=== PATIENT | male | born 1950 | race Caucasian/White ===

== ENCOUNTER 2019-08-15 11:25 | Observation (INO) | payer MEDICARE ==
[2019-08-15] MEDS ORDERED: SODIUM CHLORIDE 0.9% 500 ML 500 ML IV STA (11:59)
[2019-08-15] MEDS ORDERED: SODIUM CHLORIDE 0.9% 1,000 ML IV STA (11:59)
[2019-08-15] MEDS ORDERED: HYDROmorphone 1 MG/ML 1 ML SYRINGE IVP STA (11:59)
[2019-08-15] MEDS ORDERED: IOPAMIDOL CONTRAST (ORAL USE) VIAL PO PRN (11:59)
[2019-08-15] MEDS ORDERED: ONDANSETRON 4 MG/2 ML VIAL IVP STA (11:59)
--- NOTE | 2019-08-15 12:04 | ED ---
Abdominal Pain HPI - General Chief Complaint: Abdominal Pain Stated Complaint: possible hernia/pain Time Seen by Provider: 08/15/19 11:38 Source: patient, family, RN notes reviewed Mode of arrival: wheelchair Limitations: no limitations - History of Present Illness Initial Comments: This is a 69-year-old male with a history of previous hernias who states he had the onset of a hernia that he believes popped out sometime yesterday. Complains of pain nausea vomiting abdominal pain. He did talk with his surgeon swelling was instructed to come in for evaluation. He states his last bowel movement was about 3 days ago. He denies any overt fevers chills or sweats. No dysuria no other modifying factors and currently is about 6/10 severity MD Complaint: abdominal pain - Related Data Home Medications Medication Instructions Recorded Confirmed Aspirin [Adult Low Dose Aspirin EC] 81 mg PO DAILY 02/10/16 08/15/19 Citalopram Hydrobromide [CeleXA] 10 mg PO DAILY 02/10/16 08/15/19 Lisinopril [Zestril] 20 mg PO DAILY 02/10/16 08/15/19 Spironolactone [Aldactone] 25 mg PO DAILY 02/10/16 08/15/19 Atorvastatin [Lipitor] 20 mg PO DAILY 08/15/19 08/15/19 Carvedilol [Coreg] 25 mg PO BID 08/15/19 08/15/19 Multivit-Min/FA/Lycopen/Lutein 1 tab PO DAILY 08/15/19 08/15/19 [Centrum Silver Men Tablet] Allergies Allergy/AdvReac Type Severity Reaction Status Date / Time No Known Allergies Allergy Verified 08/15/19 14:21 Review of Systems ROS Statement: Those systems with pertinent positive or pertinent negative responses have been documented in the HPI. ROS Other: All systems not noted in ROS Statement are negative. Past Medical History Past Medical History: Hypertension Additional Past Medical History / Comment(s): INCISIONAL HERNIA, TREMORS History of Any Multi-Drug Resistant Organisms: None Reported Past Surgical History: Heart Catheterization, Hernia Repair, Joint Replacement Additional Past Surgical History / Comment(s): RIGHT KNEE REPLACED. RIGHT INGUINAL AND VENTRAL HERNIA REPAIR. 4 TOTAL Past Anesthesia/Blood Transfusion Reactions: Previous Problems w/ Anesthesia Additional Past Anesthesia/Blood Transfusion Reaction / Comment(s): PAST HX OF TROUBLE WAKING UP, ALSO STATES TALKED BELLIGERENT WHEN WAKING UP Past Psychological History: No Psychological Hx Reported Smoking Status: Current every day smoker Past Alcohol Use History: None Reported Past Drug Use History: None Reported - Past Family History Father Family Medical History: CVA/TIA General Exam - General Exam Comments Initial Comments: This is a well-developed well-nourished awake alert oriented 3 male Limitations: no limitations General appearance: alert, in no apparent distress Head exam: Present: atraumatic, normocephalic, normal inspection Eye exam: Present: normal appearance, PERRL, EOMI. Absent: scleral icterus, conjunctival injection, periorbital swelling ENT exam: Present: mucous membranes dry, mucous membranes moist Neck exam: Present: normal inspection. Absent: tenderness, meningismus, lymphadenopathy Respiratory exam: Present: normal lung sounds bilaterally. Absent: respiratory distress, wheezes, rales, rhonchi, stridor Cardiovascular Exam: Present: regular rate, normal rhythm, normal heart sounds. Absent: systolic murmur, diastolic murmur, rubs, gallop, clicks GI/Abdominal exam: Present: soft, tenderness, normal bowel sounds, hernia (There is evidence of any herniation to the left mid abdomen tenderness palpation not easily reducible at this time.). Absent: distended, guarding, rebound, rigid, bruit, pulsatile mass Rectal exam: Present: deferred Extremities exam: Present: normal inspection, full ROM, normal capillary refill. Absent: tenderness, pedal edema, joint swelling, calf tenderness Back exam: Present: normal inspection Neurological exam: Present: alert, oriented X3, CN II-XII intact Psychiatric exam: Present: normal affect, normal mood Skin exam: Present: warm, dry, intact, normal color. Absent: rash Course Vital Signs 08/15/19 08/15/19 08/15/19 11:26 13:14 14:21 Temperature 98.3 F Pulse Rate 85 72 76 Respiratory 18 18 18 Rate Blood Pressure 116/79 107/72 107/66 O2 Sat by Pulse 98 97 95 Oximetry Medical Decision Making - Medical Decision Making I did discuss findings with patient family members were present and with Dr. Mckay patient will be admitted and taken the operating room for evaluation of the small bowel obstruction and hernia. - Lab Data Result diagrams: 08/15/19 12:31 08/15/19 12:31 Lab Results 08/15/19 08/15/19 08/15/19 Range/Units 12:31 12:31 12:31 WBC 14.3 H (3.8-10.6) k/uL RBC 5.23 (4.30-5.90) m/uL Hgb 15.9 (13.0-17.5) gm/dL Hct 47.4 (39.0-53.0) % MCV 90.6 (80.0-100.0) fL MCH 30.3 (25.0-35.0) pg MCHC 33.5 (31.0-37.0) g/dL RDW 12.8 (11.5-15.5) % Plt Count 277 (150-450) k/uL Neutrophils % 84 % Lymphocytes % 10 % Monocytes % 4 % Eosinophils % 1 % Basophils % 0 % Neutrophils # 12.1 H (1.3-7.7) k/uL Lymphocytes # 1.4 (1.0-4.8) k/uL Monocytes # 0.6 (0-1.0) k/uL Eosinophils # 0.1 (0-0.7) k/uL Basophils # 0.0 (0-0.2) k/uL PT 10.4 (9.0-12.0) sec INR 1.0 (<1.2) APTT 23.5 (22.0-30.0) sec Sodium 132 L (137-145) mmol/L Potassium 4.8 (3.5-5.1) mmol/L Chloride 98 (98-107) mmol/L Carbon Dioxide 23 (22-30) mmol/L Anion Gap 11 mmol/L BUN 28 H (9-20) mg/dL Creatinine 0.98 (0.66-1.25) mg/dL Est GFR (CKD-EPI)AfAm >90 (>60 ml/min/1.73 sqM) Est GFR (CKD-EPI)NonAf 78 (>60 ml/min/1.73 sqM) Glucose 120 H (74-99) mg/dL Calcium 9.8 (8.4-10.2) mg/dL Total Bilirubin 0.7 (0.2-1.3) mg/dL AST 25 (17-59) U/L ALT 19 (4-49) U/L Alkaline Phosphatase 50 (38-126) U/L Creatine Kinase 83 (55-170) U/L Total Protein 7.6 (6.3-8.2) g/dL Albumin 4.5 (3.5-5.0) g/dL Amylase 39 (30-110) U/L Lipase 39 (23-300) U/L Urine Color Urine Appearance (Clear) Urine pH (5.0-8.0) Ur Specific [place] (1.001-1.035) Urine Protein (Negative) Urine Glucose (UA) (Negative) Urine Ketones (Negative) Urine Blood (Negative) Urine Nitrite (Negative) Urine Bilirubin (Negative) Urine Urobilinogen (<2.0) mg/dL Ur Leukocyte Esterase (Negative) Urine RBC (0-5) /hpf Urine WBC (0-5) /hpf Ur Squamous Epith Cells (0-4) /hpf Urine Bacteria (None) /hpf Hyaline Casts (0-2) /lpf WBC Casts (0) /lpf Urine Mucus (None) /hpf 04/16/20 Range/Units 13:07 WBC (3.8-10.6) k/uL RBC (4.30-5.90) m/uL Hgb (13.0-17.5) gm/dL Hct (39.0-53.0) % MCV (80.0-100.0) fL MCH (25.0-35.0) pg MCHC (31.0-37.0) g/dL RDW (11.5-15.5) % Plt Count (150-450) k/uL Neutrophils % % Lymphocytes % % Monocytes % % Eosinophils % % Basophils % % Neutrophils # (1.3-7.7) k/uL Lymphocytes # (1.0-4.8) k/uL Monocytes # (0-1.0) k/uL Eosinophils # (0-0.7) k/uL Basophils # (0-0.2) k/uL PT (9.0-12.0) sec INR (<1.2) APTT (22.0-30.0) sec Sodium (137-145) mmol/L Potassium (3.5-5.1) mmol/L Chloride (98-107) mmol/L Carbon Dioxide (22-30) mmol/L Anion Gap mmol/L BUN (9-20) mg/dL Creatinine (0.66-1.25) mg/dL Est GFR (CKD-EPI)AfAm (>60 ml/min/1.73 sqM) Est GFR (CKD-EPI)NonAf (>60 ml/min/1.73 sqM) Glucose (74-99) mg/dL Calcium (8.4-10.2) mg/dL Total Bilirubin (0.2-1.3) mg/dL AST (17-59) U/L ALT (4-49) U/L Alkaline Phosphatase (38-126) U/L Creatine Kinase (55-170) U/L Total Protein (6.3-8.2) g/dL Albumin (3.5-5.0) g/dL Amylase (30-110) U/L Lipase (23-300) U/L Urine Color Yellow Urine Appearance Cloudy (Clear) Urine pH 5.5 (5.0-8.0) Ur Specific [place] 1.032 (1.001-1.035) Urine Protein 1+ H (Negative) Urine Glucose (UA) Negative (Negative) Urine Ketones 2+ H (Negative) Urine Blood Negative (Negative) Urine Nitrite Negative (Negative) Urine Bilirubin 1+ H (Negative) Urine Urobilinogen 3.0 (<2.0) mg/dL Ur Leukocyte Esterase Trace H (Negative) Urine RBC 3 (0-5) /hpf Urine WBC 3 (0-5) /hpf Ur Squamous Epith Cells 6 H (0-4) /hpf Urine Bacteria Rare H (None) /hpf Hyaline Casts 134 H (0-2) /lpf WBC Casts 2 (0) /lpf Urine Mucus Many H (None) /hpf - Radiology Data Radiology results: report reviewed (I did review the imaging and report evidence of a high-grade small bowel obstruction with small bowel loops dilated after 3.9 cm. Transition point involves a left-sided spegelian hernia), image reviewed Disposition Clinical Impression: Acute abdomen, Small bowel obstruction, Spigelian hernia with bowel obstruction Disposition: ADMITTED IP TO THIS [facility] Condition: Fair Referrals: Robert Hurtado MD [Primary Care Provider] - 1-2 days
[2019-08-15 12:50] LABS: Basophils % (A) 0 %; Eosinophils # (A) 0.1 k/uL (0-0.7); Eosinophils % (A) 1 %; HCT 47.4 % (39.0-53.0); HGB 15.9 gm/dL (13.0-17.5); Lymphocytes # (A) 1.4 k/uL (1.0-4.8); Lymphocytes % (A) 10 %; MCH 30.3 pg (25.0-35.0); MCHC 33.5 g/dL (31.0-37.0); MCV 90.6 fL (80.0-100.0); Monocytes # (A) 0.6 k/uL (0-1.0); Monocytes % (A) 4 %; Neutrophils # (A) 12.1 k/uL (1.3-7.7); Neutrophils % (A) 84 %; Platelet Count 277 k/uL (150-450); RBC 5.23 m/uL (4.30-5.90); RDW 12.8 % (11.5-15.5); WBC 14.3 k/uL (3.8-10.6)
[2019-08-15 12:55] LABS: ALT 19 U/L (4-49); AST 25 U/L (17-59); African American GFR (CKD) >90 (>60 ml/min/1.73 sqM); Albumin 4.5 g/dL (3.5-5.0); Alkaline Phosphatase 50 U/L (38-126); Amylase 39 U/L (30-110); Anion Gap 11 mmol/L; Blood Urea Nitrogen 28 mg/dL (9-20); Calcium 9.8 mg/dL (8.4-10.2); Carbon Dioxide 23 mmol/L (22-30); Chloride 98 mmol/L (98-107); Creatine Kinase 83 U/L (55-170); Glucose 120 mg/dL (74-99); Non-African American GFR(CKD) 78 (>60 ml/min/1.73 sqM); Potassium 4.8 mmol/L (3.5-5.1); Sodium 132 mmol/L (137-145); Total Bilirubin 0.7 mg/dL (0.2-1.3); Total Protein 7.6 g/dL (6.3-8.2)
[2019-08-15 13:01] LABS: Partial Thromboplastin Time 23.5 sec (22.0-30.0); Prothrombin Time 10.4 sec (9.0-12.0)
[2019-08-15 13:40] LABS: Appearance,Urine Cloudy (Clear); Bacteria,Urine Rare /hpf; Bilirubin,Urine 1+ (Negative); Blood,Urine Negative (Negative); Color,Urine Yellow; Glucose,Urine (UA) Negative (Negative); Hyaline Casts,Urine 134 /lpf (0-2); Ketones,Urine 2+ (Negative); Leukocyte Esterase,Urine Trace (Negative); Mucus,Urine Many /hpf; Nitrite,Urine Negative (Negative); PH, Urine 5.5 (5.0-8.0); Protein,Urine 1+ (Negative); RBC,Urine 3 /hpf (0-5); Specific Gravity,Urine 1.032 (1.001-1.035); Squamous Epithelial Cell,Urine 6 /hpf (0-4); WBC,Urine 3 /hpf (0-5); White Blood Cell Casts,Urine 2 /lpf (0)
--- NOTE | 2019-08-15 14:18 | CT ---
EXAMINATION TYPE: CT abdomen pelvis w con DATE OF EXAM: 08/15/2019 COMPARISON: NONE HISTORY: 69-year-old male abdominal distention, pain, possible hernia TECHNIQUE: Contiguous axial scanning of the abdomen and pelvis following administration of 100 ml Iso lulu 300 IV contrast. Delayed images through the kidneys and coronal/sagittal reconstructions perform ed. CT DLP: 837.6 mGycm Automated exposure control for dose reduction was used. FINDINGS: Heart normal size without pericardial effusion and coronary artery calcifications are present. Lung b ases clear without pleural effusion. No focal liver lesion or biliary ductal dilatation. Portal venous system is patent. Gallbladder, adrenal glands, kidneys, spleen, and pancreas show no gross abnormality. Fluid distention of the stomach multiple dilated small bowel loops with air-fluid levels. Small bowel loops are dilated up to 3.9 cm. There is a left-sided spigelian hernia containing a fluid filled and distended small bowel loop and mesenteric fat measuring up to 7.4 cm wide and 8.2 cm craniocaudal se rving as a transition point. Mild mesenteric edema in the lower abdomen without free fluid or free air at this time. Moderate vascular calcifications throughout the abdominal aorta and iliac arteries with fusiform infr arenal AAA measuring 3.1 cm. No mesenteric or retroperitoneal lymphadenopathy seen. Mild overall stool burden. Some scattered colonic diverticulosis, greatest in the sigmoid colon. No p ericolonic inflammatory change. Bladder not distended. Prostate gland measures 4.1 cm wide. No abnormal fluid collection in the pelvi s or pelvic lymphadenopathy. Bones: Mild degenerative changes at the hips There is a 1.8 cm lucency along the left acetabular roof, suspected subchondral geode related to dege nerative change. Hypertrophic facet arthropathy with grade 1 anterolisthesis at L4-L5. IMPRESSION: 1. HIGH-GRADE SMALL BOWEL OBSTRUCTION WITH SMALL BOWEL LOOPS DILATED UP TO 3.9 CM. THE TRANSITION POI NT INVOLVES A LEFT-SIDED SPIGELIAN HERNIA CONTAINING A FLUID-FILLED AND DILATED LOOP OF SMALL BOWEL A ND MESENTERIC FAT MEASURING UP TO 8.2 X 7.4 CM. 2. MILD REACTIVE MESENTERIC EDEMA IN THE LOWER ABDOMEN. NO FREE AIR OR FREE FLUID. 3. A 1.8 CM LUCENT LESION IN THE LEFT SUPERIOR ACETABULAR ROOF, SUSPECTED DEGENERATIVE SUBCHONDRAL GE ODE. CONSIDER 4-6 WEEK FOLLOW-UP MRI OF THE PELVIS TO FURTHER EVALUATE. 4. GENERALIZED COLONIC DIVERTICULOSIS, GREATEST IN THE SIGMOID COLON AND A 3.1 CM AAA.
[2019-08-15] MEDS ORDERED: PIPERACILLIN-TAZOBACTAM 3.375 GM in SODIUM CHLORIDE 0.9% 100 ML IVPB STA (14:47)
[2019-08-15] MEDS ORDERED: NALOXONE 0.4 MG/ML 1 ML VIAL IV PRN (14:50)
[2019-08-15] MEDS ORDERED: LACTATED RINGERS 1,000 ML IV ONE (17:16)
[2019-08-15] MEDS ORDERED: HEPARIN SODIUM,PORCINE 5,000 UNIT/ML 1 ML VIAL SQ ONE (17:43)
[2019-08-15] MEDS ORDERED: GLYCOPYRROLATE 0.2 MG/ML 2 ML VIAL ONE (17:45)
[2019-08-15] MEDS ORDERED: ROCURONIUM BROMIDE 10 MG/ML 5 ML VIAL IV ONE (17:45)
[2019-08-15] MEDS ORDERED: SUCCINYLCHOLINE CHLORIDE 100 MG/5 ML SYR IV ONE (17:45)
[2019-08-15] MEDS ORDERED: LIDOCAINE 1% INJ 10MG/ML (20 ML MDV) ONE (17:45)
[2019-08-15] MEDS ORDERED: PROPOFOL 10 MG/ML 20 ML VIAL IV ONE (17:45)
[2019-08-15] MEDS ORDERED: MIDAZOLAM 2 MG/2 ML VIAL ONE (17:45)
[2019-08-15] MEDS ORDERED: NEOSTIGMINE 1 MG/ML 10 ML VIAL ONE (17:45)
[2019-08-15] MEDS ORDERED: fentaNYL (PF) 50 MCG/ML 2 ML AMP ONE (17:45)
[2019-08-15] MEDS ORDERED: BUPIVACAIN-EPI 0.25%-1:200,000 30 ML VIAL SQ ONE (17:49)
--- NOTE | 2019-08-15 17:49 | P.GSHP ---
History of Present Illness H&P Date: 08/15/19 Chief Complaint: Incarcerated spigelian hernia Patient contacted my office earlier this morning by phone. Patient complaining of a bulge with abdominal pain and bloating constipation and vomiting. Patient with history of previous hernias. No change in size over the last 24 hours. Pain has been increasing. With sent to the ER. White blood cell count elevated. CAT scan shows an incarcerated spigelian hernia on the left-hand side causing bowel obstruction. Patient says his pain has improved since admission. Patient is afebrile without tachycardia. - Review of Systems Comment: The patient denies any acute changes in vision or hearing, no dysphagia or odynophagia, no chest pain or shortness of breath, no dysuria or hematuria, no headache, no runny nose, no rectal bleeding or melena, no unexplained weight loss Past Medical History Past Medical History: Hypertension Additional Past Medical History / Comment(s): INCISIONAL HERNIA, TREMORS History of Any Multi-Drug Resistant Organisms: None Reported Past Surgical History: Heart Catheterization, Hernia Repair, Joint Replacement Additional Past Surgical History / Comment(s): RIGHT KNEE REPLACED. RIGHT INGUINAL AND VENTRAL HERNIA REPAIR. 4 TOTAL Past Anesthesia/Blood Transfusion Reactions: Previous Problems w/ Anesthesia Additional Past Anesthesia/Blood Transfusion Reaction / Comment(s): PAST HX OF TROUBLE WAKING UP, ALSO STATES TALKED BELLIGERENT WHEN WAKING UP Past Psychological History: No Psychological Hx Reported Smoking Status: Current every day smoker Past Alcohol Use History: None Reported Additional Past Alcohol Use History / Comment(s): SMOKES LESS THAN 1/2 PPD, SINCE AGE 10 (1) Past Drug Use History: None Reported - Past Family History Father Family Medical History: CVA/TIA Medications and Allergies Home Medications Medication Instructions Recorded Confirmed Type Aspirin [Adult Low Dose Aspirin EC] 81 mg PO DAILY 02/10/16 08/15/19 History Citalopram Hydrobromide [CeleXA] 10 mg PO DAILY 02/10/16 08/15/19 History Lisinopril [Zestril] 20 mg PO DAILY 02/10/16 08/15/19 History Spironolactone [Aldactone] 25 mg PO DAILY 02/10/16 08/15/19 History Atorvastatin [Lipitor] 20 mg PO DAILY 08/15/19 08/15/19 History Carvedilol [Coreg] 25 mg PO BID 08/15/19 08/15/19 History Multivit-Min/FA/Lycopen/Lutein 1 tab PO DAILY 08/15/19 08/15/19 History [Centrum Silver Men Tablet] Allergies Allergy/AdvReac Type Severity Reaction Status Date / Time No Known Allergies Allergy Verified 08/15/19 14:21 Surgical - Exam Vital Signs Temp Pulse Resp BP Pulse Ox 98.3 F 85 18 116/79 98 08/15/19 11:26 08/15/19 11:26 08/15/19 11:26 08/15/19 11:26 08/15/19 11:26 Physical exam: General: Well-developed, well-nourished HEENT: Normocephalic, sclerae nonicteric Abdomen: Tender mass left midabdomen at anticipated spigelian location, no overlying skin changes, mild distention Extremities: No edema Neuro: Alert and oriented Results - Labs 08/15/19 12:31 08/15/19 12:31 Abnormal Lab Results - Last 24 Hours (Table) 08/15/19 08/15/19 08/15/19 Range/Units 12:31 12:31 13:07 WBC 14.3 H (3.8-10.6) k/uL Neutrophils # 12.1 H (1.3-7.7) k/uL Sodium 132 L (137-145) mmol/L BUN 28 H (9-20) mg/dL Glucose 120 H (74-99) mg/dL Urine Protein 1+ H (Negative) Urine Ketones 2+ H (Negative) Urine Bilirubin 1+ H (Negative) Ur Leukocyte Esterase Trace H (Negative) Ur Squamous Epith Cells 6 H (0-4) /hpf Urine Bacteria Rare H (None) /hpf Hyaline Casts 134 H (0-2) /lpf Urine Mucus Many H (None) /hpf Diabetes panel 08/15/19 Range/Units 12:31 Sodium 132 L (137-145) mmol/L Potassium 4.8 (3.5-5.1) mmol/L Chloride 98 (98-107) mmol/L Carbon Dioxide 23 (22-30) mmol/L BUN 28 H (9-20) mg/dL Creatinine 0.98 (0.66-1.25) mg/dL Glucose 120 H (74-99) mg/dL Calcium 9.8 (8.4-10.2) mg/dL AST 25 (17-59) U/L ALT 19 (4-49) U/L Alkaline Phosphatase 50 (38-126) U/L Total Protein 7.6 (6.3-8.2) g/dL Albumin 4.5 (3.5-5.0) g/dL Calcium panel 08/15/19 Range/Units 12:31 Calcium 9.8 (8.4-10.2) mg/dL Albumin 4.5 (3.5-5.0) g/dL Pituitary panel 08/15/19 Range/Units 12:31 Sodium 132 L (137-145) mmol/L Potassium 4.8 (3.5-5.1) mmol/L Chloride 98 (98-107) mmol/L Carbon Dioxide 23 (22-30) mmol/L BUN 28 H (9-20) mg/dL Creatinine 0.98 (0.66-1.25) mg/dL Glucose 120 H (74-99) mg/dL Calcium 9.8 (8.4-10.2) mg/dL Adrenal panel 08/15/19 Range/Units 12:31 Sodium 132 L (137-145) mmol/L Potassium 4.8 (3.5-5.1) mmol/L Chloride 98 (98-107) mmol/L Carbon Dioxide 23 (22-30) mmol/L BUN 28 H (9-20) mg/dL Creatinine 0.98 (0.66-1.25) mg/dL Glucose 120 H (74-99) mg/dL Calcium 9.8 (8.4-10.2) mg/dL Total Bilirubin 0.7 (0.2-1.3) mg/dL AST 25 (17-59) U/L ALT 19 (4-49) U/L Alkaline Phosphatase 50 (38-126) U/L Total Protein 7.6 (6.3-8.2) g/dL Albumin 4.5 (3.5-5.0) g/dL Assessment and Plan (1) Spigelian hernia with bowel obstruction Narrative/Plan: 69-year-old male with left-sided spigelian hernia that is incarcerated causing bowel obstruction. We'll proceed with urgent operative repair with possible mesh, possible bowel resection. Risks of bleeding, infection, recurrence, pain, scarring, mesh infection, possible need for bowel resection, leak, abscess, chronic pain reviewed. Patient understands and wishes to proceed. Current Visit: Yes Status: Acute Code(s): K43.6 - OTHER AND UNSP VENTRAL HERNIA WITH OBSTRUCTION, W/O GANGRENE SNOMED Code(s): 659386994
[2019-08-15] MEDS ORDERED: ceFAZolin 1,000 MG VIAL IVPB ONE (18:05)
[2019-08-15] MEDS ORDERED: HYDROmorphone 0.5 MG/0.5 ML SYRINGE IVP PRN (19:24)
[2019-08-15] MEDS ORDERED: HYDROcodone/APAP 5-325MG 1 EACH TAB PO PRN (19:24)
--- NOTE | 2019-08-15 19:31 | P.OP ---
Date of Procedure: 08/15/19 Procedure(s) Performed: PREOPERATIVE DIAGNOSIS: Incarcerated spigelian hernia POSTOPERATIVE DIAGNOSIS: Incarcerated incisional hernia PROCEDURE: Repair Incarcerated incisional hernia SURGEON: Woody EBL: 20 mL ANESTHESIA: Gen. COMPLICATIONS: None OPERATIVE PROCEDURE: Patient placed on the operating table in the supine position. After prepping and draping the patient's abdomen was reexamined. At this point I identified a previous scar overlying the palpable mass that was not well-visualized in preop. This was from the patient's previous robotic hernia repair I suspect a 12 mm trocar site. This appeared to be the site of hernia. A horizontal incision was made through the previous incision measuring about 6-8 cm in length. Dissection through the subcutaneous fat took place and an attenuated portion of external oblique was identified. Through that attenuated fascia I could visualize a hernia sac that had a slightly ischemic appearance. Careful dissection beneath the external oblique fascia then took place bluntly and using electrocautery. I was able to visualize another defect through the internal oblique at that time and the fascia of the internal oblique was further lengthened. I was then able to visualize a defect in the transversus abdominis. This was fairly tight measuring approximately 1-1.5 cm in diameter. This was opened slightly as well. We were then able to identify better blood supply to the hernia contents. The hernia sac was excised fully. The hernia contents c onsisted of a portion of pericolonic fat that appeared ischemic. This was excised using 3-0 silk ties to ligate on the patient's side. The single small bowel loop was reduced back into the peritoneal cavity after placing a small 3-0 GI silk to the mesentery. After approximately 5 minutes the bowel was reexamined and brought up into our field. The bowel had peristalsis and viability with good pink color noted. A single small 3-4 mm bruise was seen likely from manipulation. I placed 3 small 3-0 GI silk Lambert sutures over this portion to prevent future perforation in the event that this was ischemic in nature. The bowel was reduced [place] into the peritoneal cavity. The peritoneum and transversus abdominis was closed using a running locking #1 Vicryl suture. The internal oblique was closed using a running nonlocking #1 Vicryl suture. The external oblique fascia was reapproximated using a running nonlocking #1 Vicryl suture. I decided not to place permanent sutures or mesh in the event that bacterial translocation had occurred. Irrigation did take place prior to closure. The subcutaneous tissues were closed using inverted 3-0 Vicryl sutures. The skin was closed using a running 4-0 Monocryl stitch and skin glue was utilized as well. At the end of this procedure the sponge needle and inserting counts were all correct. DISPOSITION: Stable to recovery room
[2019-08-15] MEDS ORDERED: KETOROLAC 30 MG/ML 1 ML VIAL IVP ONE (19:43)
[2019-08-15] MEDS: SODIUM CHLORIDE 0.9% 1,000 ML IV SCH (21:05)
[2019-08-15] MEDS: HEPARIN SODIUM,PORCINE 5,000 UNIT/ML 1 ML VIAL SQ SCH (23:12)
[2019-08-16] MEDS: SODIUM CHLORIDE 0.9% 1,000 ML IV SCH ×2 (05:24→12:17)
[2019-08-16 06:10] VITALS: BP 115/66; PULSE 65; RESP 16; TEMP 98
--- NOTE | 2019-08-16 08:48 | P.DS ---
Providers Date of admission: 08/15/19 14:50 Expected date of discharge: 08/16/19 Attending physician: Vicente Mckay Primary care physician: Robert Hurtado - Discharge Diagnosis(es) (1) Spigelian hernia with bowel obstruction Patient admitted yesterday through the emergency department. Patient with incarcerated incisional hernia that underwent urgent repair. Patient doing well this morning. Tolerating clear liquids. Pain is improved. Would like to go home today. Incision dressing is clean and dry. Will plan discharge as long as patient continues to tolerate diet. Follow-up in office post discharge. Prescription for [place] will be provided. Current Visit: Yes Status: Acute Patient Condition at Discharge: Fair Plan - Discharge Summary New Discharge Prescriptions: No Action Spironolactone [Aldactone] 25 mg PO DAILY Lisinopril [Zestril] 20 mg PO DAILY Citalopram Hydrobromide [CeleXA] 10 mg PO DAILY Aspirin [Adult Low Dose Aspirin EC] 81 mg PO DAILY Multivit-Min/FA/Lycopen/Lutein [Centrum Silver Men Tablet] 1 tab PO DAILY Atorvastatin [Lipitor] 20 mg PO DAILY Carvedilol [Coreg] 25 mg PO BID Discharge Medication List Aspirin [Adult Low Dose Aspirin EC] 81 mg PO DAILY 02/10/16 [History] Citalopram Hydrobromide [CeleXA] 10 mg PO DAILY 02/10/16 [History] Lisinopril [Zestril] 20 mg PO DAILY 02/10/16 [History] Spironolactone [Aldactone] 25 mg PO DAILY 02/10/16 [History] Atorvastatin [Lipitor] 20 mg PO DAILY 08/15/19 [History] Carvedilol [Coreg] 25 mg PO BID 08/15/19 [History] Multivit-Min/FA/Lycopen/Lutein [Centrum Silver Men Tablet] 1 tab PO DAILY 08/15/19 [History] Follow up Appointment(s)/Referral(s): Robert Hurtado MD [Primary Care Provider] - 1-2 days
[2019-08-16] MEDS ORDERED: PANTOPRAZOLE 40 MG/10 ML VIAL IV SCH (09:00)
[2019-08-16] MEDS: HEPARIN SODIUM,PORCINE 5,000 UNIT/ML 1 ML VIAL SQ SCH (09:27)
--- NOTE | 2019-08-16 11:40 | P.CONS ---
History of Present Illness - Reason for Consult Recommendations regarding antihypertensive medications - History of Present Illness Patient came in with complaints of bloating constipation and vomiting patient has previous hernias patient is found to have a bulge in the left side of the abdomen found to have incarcerated spindly and hernia which was repaired last night. Patient is tolerating clear liquid diet well and patient diet is being advanced at this time and if he is able to tolerate that patient will be discharged later today. Patient denied any fever chills dysuria nausea vomiting patient doesn't have a [place] catheter. Computed tomography scan showed incarcerated spiffy and hernia on the left side causing bowel obstruction which was repeated as mentioned above. Review of Systems REVIEW OF SYSTEMS: CONSTITUTIONAL: No fever, no malaise, no fatigue. HEENT: No recent visual problems or hearing problems. Denied any sore throat. CARDIOVASCULAR: No chest pain, orthopnea, PND, no palpitations, no syncope. PULMONARY: No shortness of breath, no cough, no hemoptysis. GASTROINTESTINAL: As mentioned in HPI NEUROLOGICAL: No headaches, no weakness, no numbness. HEMATOLOGICAL: Denies any bleeding or petechiae. GENITOURINARY: Denies any burning micturition, frequency, or urgency. MUSCULOSKELETAL/RHEUMATOLOGICAL: Denies any joint pain, swelling, or any muscle pain. ENDOCRINE: Denies any polyuria or polydipsia. The rest of the 14-point review of systems is negative. Past Medical History Past Medical History: Hypertension Additional Past Medical History / Comment(s): INCISIONAL HERNIA, TREMORS History of Any Multi-Drug Resistant Organisms: None Reported Past Surgical History: Heart Catheterization, Hernia Repair, Joint Replacement Additional Past Surgical History / Comment(s): RIGHT KNEE REPLACED. RIGHT INGUINAL AND VENTRAL HERNIA REPAIR. 4 TOTAL Past Anesthesia/Blood Transfusion Reactions: Previous Problems w/ Anesthesia Additional Past Anesthesia/Blood Transfusion Reaction / Comm: PAST HX OF TROUBLE WAKING UP, ALSO STATES TALKED BELLIGERENT WHEN WAKING UP Past Psychological History: No Psychological Hx Reported Smoking Status: Current every day smoker Past Alcohol Use History: None Reported Additional Past Alcohol Use History / Comment(s): SMOKES LESS THAN 1/2 PPD, SINCE AGE 10 (1962) Past Drug Use History: None Reported - Past Family History Father Family Medical History: CVA/TIA Medications and Allergies Home Medications Medication Instructions Recorded Confirmed Type Aspirin [Adult Low Dose Aspirin EC] 81 mg PO DAILY 02/10/16 08/15/19 History Citalopram Hydrobromide [CeleXA] 10 mg PO DAILY 02/10/16 08/15/19 History Lisinopril [Zestril] 20 mg PO DAILY 02/10/16 08/15/19 History Spironolactone [Aldactone] 25 mg PO DAILY 02/10/16 08/15/19 History Atorvastatin [Lipitor] 20 mg PO DAILY 08/15/19 08/15/19 History Carvedilol [Coreg] 25 mg PO BID 08/15/19 08/15/19 History Multivit-Min/FA/Lycopen/Lutein 1 tab PO DAILY 08/15/19 08/15/19 History [Centrum Silver Men Tablet] Hydrocodone/Acetaminophen [[place] 1 tab PO Q6HR PRN 3 Days #10 tab 08/16/19 Rx 5-325] Allergies Allergy/AdvReac Type Severity Reaction Status Date / Time No Known Allergies Allergy Verified 08/15/19 14:21 Physical Exam Vitals: Vital Signs Temp Pulse Pulse Pulse Resp BP BP 08/16/19 06:09 98 F 65 16 115/66 08/15/19 22:30 58 L 119/78 08/15/19 22:00 54 L 105/54 08/15/19 21:15 56 L 124/69 08/15/19 21:00 58 L 125/67 08/15/19 20:45 97.6 F 56 L 18 135/83 08/15/19 20:01 61 18 138/67 08/15/19 19:46 58 L 18 117/56 08/15/19 19:32 51 L 18 139/73 08/15/19 19:16 57 L 18 152/72 08/15/19 19:05 97.6 F 67 16 155/81 08/15/19 17:08 98.4 F 69 18 151/78 08/15/19 16:01 98.4 F 67 16 141/81 08/15/19 15:28 98.6 F 71 18 105/80 08/15/19 14:21 76 18 107/66 08/15/19 13:14 72 18 107/72 Pulse Ox 08/16/19 06:09 97 08/15/19 22:30 94 L 08/15/19 22:00 97 08/15/19 21:15 96 08/15/19 21:00 99 08/15/19 20:45 97 08/15/19 20:01 99 08/15/19 19:46 100 08/15/19 19:32 100 08/15/19 19:16 100 08/15/19 19:05 98 08/15/19 17:08 97 08/15/19 16:01 95 08/15/19 15:28 95 08/15/19 14:21 95 08/15/19 13:14 97 Intake and Output 08/15/19 08/16/19 08/16/19 22:59 06:59 14:59 Intake Total 900 Output Total 10 Balance 890 Intake: IV 900 Output: Estimated Blood Loss 10 Other: # Voids 1 1 Weight 74.843 kg PHYSICAL EXAMINATION: GENERAL: The patient is alert and oriented x3, not in any acute distress. Well developed, well nourished. HEENT: Pupils are round and equally reacting to light. EOMI. No scleral icterus. No conjunctival pallor. Normocephalic, atraumatic. No pharyngeal erythema. No thyromegaly. CARDIOVASCULAR: S1 and S2 present. No murmurs, rubs, or gallops. PULMONARY: Chest is clear to auscultation, no wheezing or crackles. ABDOMEN: Soft, abdominal binder in place bowel sounds are present. MUSCULOSKELETAL: No joint swelling or deformity. EXTREMITIES: No cyanosis, clubbing, or pedal edema. NEUROLOGICAL: Gross neurological examination did not reveal any focal deficits. SKIN: No rashes. Results CBC & Chem 7: 08/15/19 12:31 08/15/19 12:31 Labs: Abnormal Lab Results - Last 24 Hours (Table) 08/15/19 08/15/19 08/15/19 Range/Units 12:31 12:31 13:07 WBC 14.3 H (3.8-10.6) k/uL Neutrophils # 12.1 H (1.3-7.7) k/uL Sodium 132 L (137-145) mmol/L BUN 28 H (9-20) mg/dL Glucose 120 H (74-99) mg/dL Urine Protein 1+ H (Negative) Urine Ketones 2+ H (Negative) Urine Bilirubin 1+ H (Negative) Ur Leukocyte Esterase Trace H (Negative) Ur Squamous Epith Cells 6 H (0-4) /hpf Urine Bacteria Rare H (None) /hpf Hyaline Casts 134 H (0-2) /lpf Urine Mucus Many H (None) /hpf Assessment and Plan Plan: -Hypertension: Patient blood pressures low-normal which is expected post surgery patient was asked to hold his lisinopril today and most probably tomorrow, patient can continue his Aldactone and Coreg -Nicotine abuse: Counseling was provided -Spigelian hernia status post repair: Pain medications and further postoperative management as per primary service patient is tolerating diet. Well
[2019-08-16] MEDS ORDERED: CARVEDILOL 12.5 MG TAB PO SCH (17:30)
[2019-08-17] MEDS ORDERED: CITALOPRAM HYDROBROMIDE 10 MG TAB PO SCH (09:00)
[2019-08-17] MEDS ORDERED: ASPIRIN 81 MG PO SCH (09:00)
[2019-08-17] MEDS ORDERED: ATORVASTATIN 20 MG TAB PO SCH (09:00)
== END 2019-08-16 16:20 | disposition home or self-care (01) ==
LOC: EC 11:25 → 5NMEDONC 14:50 → INTOOBSV 14:50 → 5NMEDONC 08-16 06:29 → UNDODISIN 08-16 16:20
PROVIDERS: ADMIT Surgery; ATTEND Surgery
PROC: 0WQF0ZZ Repair Abdominal Wall, Open Approach (ICD-10-PCS; principal; 2019-08-15 07:30)
DX: K43.0 Incisional hernia with obstruction, without gangrene (principal); I10 Essential (primary) hypertension; F17.210 Nicotine dependence, cigarettes, uncomplicated; Z79.82 Long term (current) use of aspirin; Z79.899 Other long term (current) drug therapy; Z82.3 Family history of stroke
CPT/HCPCS: 49561; 96361; 96374; 96375; 99285; 36415; 80053; 82150; 82550; 83690; 85025; 85610; 85730; 81001; 87040; 88302; 74177; G0378 ×2; J2543; J2250; J1644 ×2; J2710; J2405; J0690; J2001; J3010; J1885; J1170; J0330; J2704; C9113; Q9967

== ENCOUNTER 2019-08-17 09:21 | Emergency (ER) | payer MEDICARE ==
[2019-08-17 09:34] VITALS: RESP 18; TEMP 98.1
[2019-08-17] MEDS ORDERED: SODIUM CHLORIDE 0.9% 1,000 ML IV STA ×2 (09:53)
--- NOTE | 2019-08-17 10:01 | ED ---
Recheck HPI - General Chief Complaint: Recheck/Abnormal Lab/Rx Stated Complaint: Post op complications Time Seen by Provider: 08/17/19 09:41 Source: patient, RN notes reviewed, old records reviewed Mode of arrival: ambulatory Limitations: no limitations - History of Present Illness Initial Comments: This is a 69-year-old male who was discharged yesterday after having surgery for a bowel obstruction who states he had abdominal pain some nausea some vomiting decreased oral intake. He is having some lightheadedness he states the pain in his abdomen is improved he is not nauseated now he did discuss this with the surgeon who suggested he come in for evaluation. No fevers chills sweats no cough no phlegm production no other modifying factors at this time - Related Data Home Medications Medication Instructions Recorded Confirmed Aspirin [Adult Low Dose Aspirin EC] 81 mg PO DAILY 02/10/16 08/15/19 Citalopram Hydrobromide [CeleXA] 10 mg PO DAILY 02/10/16 08/15/19 Spironolactone [Aldactone] 25 mg PO DAILY 02/10/16 08/15/19 Atorvastatin [Lipitor] 20 mg PO DAILY 08/15/19 08/15/19 Carvedilol [Coreg] 25 mg PO BID 08/15/19 08/15/19 Multivit-Min/FA/Lycopen/Lutein 1 tab PO DAILY 08/15/19 08/15/19 [Centrum Silver Men Tablet] Previous Rx's Medication Instructions Recorded Hydrocodone/Acetaminophen [[place] 1 tab PO Q6HR PRN 3 Days #10 tab 08/16/19 5-325] Lisinopril [Zestril] 20 mg PO DAILY #0 08/16/19 Ondansetron [Zofran ODT] 4 mg PO Q8HR PRN #12 tab 08/17/19 Allergies Allergy/AdvReac Type Severity Reaction Status Date / Time No Known Allergies Allergy Verified 08/17/19 09:34 Review of Systems ROS Statement: Those systems with pertinent positive or pertinent negative responses have been documented in the HPI. ROS Other: All systems not noted in ROS Statement are negative. Past Medical History Past Medical History: Hypertension Additional Past Medical History / Comment(s): INCISIONAL HERNIA, TREMORS, intestional blockage History of Any Multi-Drug Resistant Organisms: None Reported Past Surgical History: Heart Catheterization, Hernia Repair, Joint Replacement Additional Past Surgical History / Comment(s): RIGHT KNEE REPLACED. RIGHT INGUINAL AND VENTRAL HERNIA REPAIR. 4 TOTAL, intestional blockage repair Past Anesthesia/Blood Transfusion Reactions: Previous Problems w/ Anesthesia Additional Past Anesthesia/Blood Transfusion Reaction / Comment(s): PAST HX OF TROUBLE WAKING UP, ALSO STATES TALKED BELLIGERENT WHEN WAKING UP Past Psychological History: No Psychological Hx Reported Smoking Status: Current every day smoker Past Alcohol Use History: None Reported Past Drug Use History: None Reported - Past Family History Father Family Medical History: CVA/TIA General Exam - General Exam Comments Initial Comments: This is a well-developed well-nourished awake alert oriented 3 male Limitations: no limitations General appearance: alert, in no apparent distress Head exam: Present: atraumatic, normocephalic, normal inspection Eye exam: Present: normal appearance, PERRL, EOMI. Absent: scleral icterus, conjunctival injection, periorbital swelling ENT exam: Present: mucous membranes dry Neck exam: Present: normal inspection. Absent: tenderness, meningismus, lymphadenopathy Respiratory exam: Present: normal lung sounds bilaterally. Absent: respiratory distress, wheezes, rales, rhonchi, stridor Cardiovascular Exam: Present: regular rate, normal rhythm, normal heart sounds. Absent: systolic murmur, diastolic murmur, rubs, gallop, clicks GI/Abdominal exam: Present: soft, tenderness (No discomfort over the surgical area no guarding no rebound), normal bowel sounds. Absent: distended, guarding, rebound, rigid Rectal exam: Present: deferred Extremities exam: Present: normal inspection, full ROM, normal capillary refill. Absent: tenderness, pedal edema, joint swelling, calf tenderness Back exam: Present: normal inspection Neurological exam: Present: alert, oriented X3, CN II-XII intact Psychiatric exam: Present: normal affect, normal mood Skin exam: Present: warm, dry, intact, normal color. Absent: rash Course Vital Signs 08/17/19 09:30 Temperature 98.1 F Pulse Rate 73 Respiratory 18 Rate Blood Pressure 141/73 O2 Sat by Pulse 99 Oximetry Medical Decision Making - Medical Decision Making I did discuss findings with the patient and his family were present. Also with Dr. Mckay. Patient is showing improved he'll be discharged home with for Zofran for nausea as needed also he does have enemas at home he will be sent home with a Therevac. Follow-up otherwise when necessary. He was offered admission and does not want stay in hospital at this time. - Lab Data Result diagrams: 08/17/19 10:03 08/17/19 10:03 Lab Results 08/17/19 08/17/19 Range/Units 10:03 10:03 WBC 9.4 (3.8-10.6) k/uL RBC 4.60 (4.30-5.90) m/uL Hgb 14.3 (13.0-17.5) gm/dL Hct 42.4 (39.0-53.0) % MCV 92.2 (80.0-100.0) fL MCH 31.0 (25.0-35.0) pg MCHC 33.7 (31.0-37.0) g/dL RDW 13.0 (11.5-15.5) % Plt Count 213 (150-450) k/uL Neutrophils % 90 % Lymphocytes % 6 % Monocytes % 3 % Eosinophils % 1 % Basophils % 0 % Neutrophils # 8.5 H (1.3-7.7) k/uL Lymphocytes # 0.6 L (1.0-4.8) k/uL Monocytes # 0.3 (0-1.0) k/uL Eosinophils # 0.1 (0-0.7) k/uL Basophils # 0.0 (0-0.2) k/uL Sodium 134 L (137-145) mmol/L Potassium 4.2 (3.5-5.1) mmol/L Chloride 101 (98-107) mmol/L Carbon Dioxide 25 (22-30) mmol/L Anion Gap 8 mmol/L BUN 16 (9-20) mg/dL Creatinine 0.67 (0.66-1.25) mg/dL Est GFR (CKD-EPI)AfAm >90 (>60 ml/min/1.73 sqM) Est GFR (CKD-EPI)NonAf >90 (>60 ml/min/1.73 sqM) Glucose 127 H (74-99) mg/dL Calcium 9.0 (8.4-10.2) mg/dL Total Bilirubin 0.5 (0.2-1.3) mg/dL AST 21 (17-59) U/L ALT 16 (4-49) U/L Alkaline Phosphatase 40 (38-126) U/L Total Protein 6.5 (6.3-8.2) g/dL Albumin 3.8 (3.5-5.0) g/dL Amylase 32 (30-110) U/L Lipase 31 (23-300) U/L - Radiology Data Radiology results: report reviewed (I did review the imaging and report no acute findings), image reviewed Disposition Clinical Impression: Postop check, Dehydration, Constipation Disposition: HOME SELF-CARE Condition: Good Instructions (If sedation given, give patient instructions): Dehydration (ED), Constipation (ED) Additional Instructions: Prescriptions sent to your preferred [facility] pharmacy at the hospital Prescriptions: Ondansetron [Zofran ODT] 4 mg PO Q8HR PRN #12 tab PRN Reason: Nausea Is patient prescribed a controlled substance at d/c from ED?: No Referrals: Robert Hurtado MD [Primary Care Provider] - 1-2 days
--- NOTE | 2019-08-17 10:24 | XR ---
EXAMINATION TYPE: XR abdomen 2V , 3 VIEWS DATE OF EXAM ORDERED: 08/17/2019 HISTORY: abdominal pain. COMPARISON: Previous study dated 04/23/2014. FINDINGS: The lung bases are clear. The heart is not enlarged. Within the abdomen, the abdominal gas pattern is within normal limits. There is no evidence of obstru ction or free air. There are vascular calcifications overlying the pelvis. Both femoral heads are nonspherical. IMPRESSION: 1. NO ACUTE INTRA-ABDOMINAL ABNORMALITY. 2. PLEASE CORRELATE CLINICALLY FOR FEMOROACETABULAR IMPINGEMENT SYNDROME
[2019-08-17 10:28] LABS: Basophils % (A) 0 %; Eosinophils # (A) 0.1 k/uL (0-0.7); Eosinophils % (A) 1 %; HCT 42.4 % (39.0-53.0); HGB 14.3 gm/dL (13.0-17.5); Lymphocytes # (A) 0.6 k/uL (1.0-4.8); Lymphocytes % (A) 6 %; MCHC 33.7 g/dL (31.0-37.0); MCV 92.2 fL (80.0-100.0); Mean Platelet Volume 7.2; Monocytes # (A) 0.3 k/uL (0-1.0); Monocytes % (A) 3 %; Neutrophils # (A) 8.5 k/uL (1.3-7.7); Neutrophils % (A) 90 %; Platelet Count 213 k/uL (150-450); WBC 9.4 k/uL (3.8-10.6)
[2019-08-17 10:37] LABS: ALT 16 U/L (4-49); AST 21 U/L (17-59); African American GFR (CKD) >90 (>60 ml/min/1.73 sqM); Albumin 3.8 g/dL (3.5-5.0); Alkaline Phosphatase 40 U/L (38-126); Amylase 32 U/L (30-110); Anion Gap 8 mmol/L; Blood Urea Nitrogen 16 mg/dL (9-20); Carbon Dioxide 25 mmol/L (22-30); Chloride 101 mmol/L (98-107); Glucose 127 mg/dL (74-99); Non-African American GFR(CKD) >90 (>60 ml/min/1.73 sqM); Potassium 4.2 mmol/L (3.5-5.1); Sodium 134 mmol/L (137-145); Total Bilirubin 0.5 mg/dL (0.2-1.3); Total Protein 6.5 g/dL (6.3-8.2)
[2019-08-17 11:29] LABS: Appearance,Urine Clear (Clear); Bilirubin,Urine Negative (Negative); Blood,Urine Negative (Negative); Color,Urine Yellow; Glucose,Urine (UA) Negative (Negative); Ketones,Urine 3+ (Negative); Leukocyte Esterase,Urine Negative (Negative); Mucus,Urine Moderate /hpf; Nitrite,Urine Negative (Negative); Protein,Urine 1+ (Negative); RBC,Urine 1 /hpf (0-5); Specific Gravity,Urine 1.025 (1.001-1.035); Squamous Epithelial Cell,Urine 2 /hpf (0-4); Urobilinogen,Urine <2.0 mg/dL (<2.0); WBC,Urine 1 /hpf (0-5)
[2019-08-17] MEDS ORDERED: DOCUSATE 283 MG/5 ML ENEMA RECTAL STA (11:40)
[2019-08-17 12:29] VITALS: BP 141/63; PULSE 66
== END 2019-08-17 12:27 | disposition home or self-care (01) ==
LOC: EC 09:21
DX: K59.00 Constipation, unspecified (principal); E86.0 Dehydration; Z48.815 Encounter for surgical aftercare following surgery on the digestive system; R11.0 Nausea; I10 Essential (primary) hypertension; F17.200 Nicotine dependence, unspecified, uncomplicated; Z79.82 Long term (current) use of aspirin; Z79.899 Other long term (current) drug therapy; Z87.19 Personal history of other diseases of the digestive system; Z98.890 Other specified postprocedural states; Z95.5 Presence of coronary angioplasty implant and graft; Z96.651 Presence of right artificial knee joint
CPT/HCPCS: 36415; 74019; 80053; 81001; 82150; 83690; 85025; 96360; 96361; 99284

== ENCOUNTER → 2019-10-04 | Outpatient (CLI) | payer MEDICARE | LOC: LABWHC1 13:29 | PROVIDERS: ATTEND Surgery | DX: Z11.59 Encounter for screening for other viral diseases (principal) ==

== ENCOUNTER 2019-10-07 11:10 | Day surgery (SDC) | payer MEDICARE ==
[2019-10-04 10:24] VITALS: BMI 25.0
[~2019-10-07 11:10] MED LIST: ACETAMINOPHEN TAB 500 MG TAB PO ONE; DEXAMETHASONE SOD PHOSPHATE 10 MG/ML 1 ML VIAL IV ONE; HEPARIN SODIUM,PORCINE 5,000 UNIT/ML 1 ML VIAL SQ ONE; HYDROmorphone 0.5 MG/0.5 ML SYRINGE IVP PRN; LIDOCAINE 1% (10MG/ML) FOR IV START INTRADERMA PRN; ONDANSETRON 4 MG/2 ML VIAL IVP ONE
[2019-10-07] MEDS: LACTATED RINGERS 1,000 ML IV SCH ×3 (12:21→15:55)
[2019-10-07] MEDS ORDERED: LIDOCAINE 1% INJ 10MG/ML (20 ML MDV) ONE (13:17)
[2019-10-07] MEDS ORDERED: PROPOFOL 10 MG/ML 20 ML VIAL IV ONE (13:17)
[2019-10-07] MEDS ORDERED: ROCURONIUM BROMIDE 10 MG/ML 5 ML VIAL IV ONE (13:17)
[2019-10-07] MEDS ORDERED: fentaNYL (PF) 50 MCG/ML 2 ML AMP ONE (13:17)
[2019-10-07] MEDS ORDERED: GLYCOPYRROLATE 0.2 MG/ML 2 ML VIAL ONE (13:17)
[2019-10-07] MEDS ORDERED: ePHEDrine SULFATE/0.9% NACL/PF 50 MG/5 ML SYRINGE IV ONE (13:17)
[2019-10-07] MEDS ORDERED: SUCCINYLCHOLINE CHLORIDE 100 MG/5 ML SYR IV ONE (13:17)
[2019-10-07] MEDS ORDERED: MIDAZOLAM 2 MG/2 ML VIAL ONE (13:17)
[2019-10-07] MEDS ORDERED: NEOSTIGMINE 1 MG/ML 10 ML VIAL ONE (13:17)
[2019-10-07] MEDS ORDERED: BUPIVACAIN-EPI 0.25%-1:200,000 30 ML VIAL SQ ONE (13:21)
[2019-10-07] MEDS ORDERED: NALOXONE 0.4 MG/ML 1 ML VIAL IV PRN (14:13)
[2019-10-07] MEDS ORDERED: HYDROcodone/APAP 5-325MG 1 EACH TAB PO PRN (14:13)
--- NOTE | 2019-10-07 14:15 | P.OP ---
Date of Procedure: 10/07/19 Procedure(s) Performed: PREOPERATIVE DIAGNOSIS: Left reducible inguinal hernia POSTOPERATIVE DIAGNOSIS: Left reducible indirect inguinal hernia PROCEDURE: F inguinal hernia repair with mesh SURGEON: Woody EBL: Minimal ANESTHESIA: General COMPLICATIONS: None OPERATIVE PROCEDURE: Patient was placed in the operating table in the supine position and placed under general anesthesia. An oblique incision was made in the [] groin. Dissection down through the subcutaneous tissues took place using electrocautery. The external oblique fascia was incised using a scalpel. This opening was lengthened using the Metzenbaum scissors. The spermatic cord was encircled with a Carole drain. The structures were identified and preserved. Careful dissection revealed an indirect hernia sac. This was carefully dissected back to the internal inguinal ring where it was ligated using 2 separate 2-0 silk stick tie sutures. A 3" x 6" Prolene mesh was cut to fit on the exposed fascia. This was sutured to the pubic tubercle the folding edge of the inguinal ligament and the conjoined tendon. A slit was created in the mesh and the mesh was wrapped around the spermatic cord and sutured back to itself. The external oblique was then reapproximated using a running 2-0 Vicryl suture. The subcutaneous tissues were reapproximated using a 3-0 Vicryl sutures. The skin was closed using 4-0 Monocryl sutures. Skin glue was then applied. DISPOSITION: Stable to recovery room
[2019-10-07 14:33] VITALS: TEMP 96.8
[2019-10-07] MEDS ORDERED: HYDROcodone/APAP 5-325MG 1 EACH TAB PO ONE ×2 (15:20)
[2019-10-07 16:18] VITALS: BP 139/75; PULSE 58; RESP 18
== END 2019-10-07 16:15 | disposition home or self-care (01) ==
LOC: OR 11:10
PROVIDERS: ATTEND Surgery
DX: K40.90 Unilateral inguinal hernia, without obstruction or gangrene, not specified as recurrent (principal); E78.5 Hyperlipidemia, unspecified; I10 Essential (primary) hypertension; F17.200 Nicotine dependence, unspecified, uncomplicated; K08.89 Other specified disorders of teeth and supporting structures; K08.409 Partial loss of teeth, unspecified cause, unspecified class; E66.9 Obesity, unspecified; Z68.34 Body mass index [BMI] 34.0-34.9, adult; Z98.890 Other specified postprocedural states; Z87.19 Personal history of other diseases of the digestive system; Z79.899 Other long term (current) drug therapy
CPT/HCPCS: 49505; 88302; C1781; J2250; J1644; J1100; J2710; J0690; J2405; J2001; J3010; J0330; J2704

== ENCOUNTER → 2020-01-16 | Outpatient (CLI) | payer MEDICARE | END | disposition home or self-care (01) | LOC: LABWHC1 14:53 | PROVIDERS: ATTEND Family Medicine | DX: Z20.828 Contact with and (suspected) exposure to other viral communicable diseases (principal) | CPT/HCPCS: U0003; C9803 ==

== ENCOUNTER → 2020-10-30 | Outpatient (CLI) | payer MEDICARE ==
--- NOTE | 2020-11-02 12:46 | MR ---
EXAMINATION TYPE: MR Prostate wo/w con DATE OF EXAM: 10/30/2020 COMPARISON: CT abdomen and pelvis August 15, 2019 INDICATION: Prostate cancer. PSA: 4.3 ng/ml on October 29, 2018 Recent Biopsy and Date: September 25, 2020 Pathology Report (If Applicable): Right lateral mid adenocarcinoma 3+3 = 6, 70% of tissue measures 3 mm length, right lateral apex adenocarcinoma [place] grade 3+3 = 6 90% of tissue measures 5 mm. Left base adenocarcinoma 3+3 = 6, 20% of tissue measures 1.5 mm length. Left mid adenocarcinoma [place] gr isabel 3+3 = 6 approximately 30% of tissue measures 1 mm length. Left apex adenocarcinoma [place] grade 3+3 = 6 20% of tissue measures 1.5 mm. TECHNIQUE: Examination was performed using a 3T MRI without an endorectal coil. Multiparametric imaging was perf ormed with T2 mutliplanar sequences, axial diffusion weighted imaging and dynamic contrast enhanced i maging, utilizing 7 mL intravenous Gadavist gadolinium contrast. FINDINGS: There is artifact related to patient motion along with some distortion noted on DWI/ADC imaging PROSTATE VOLUME: 4.2 cm SI x 2.8 cm AP x 4.2 cm LR Vol= 25.9 cc PSA DENSITY: 0.17 ng/ml/cc Predicted PSA 3.11 Overall normal size prostate with tiny areas of indistinct hypointensity on ADC mapping in the periph eral zone. No areas of [id number] hypointensity with mild hyperintensity on diffusion-weighted imaging. Heterogeneity in the transitional zone without areas of mild to moderate hypointensity on T2 -weighted imaging. Prostate capsular margin somewhat obscured. No adjacent suspicious adenopathy jassi rly seen. Bladder shows mild trabeculation. Prominent diverticula in the adjacent sigmoid colon noted. Small fa t-containing bilateral inguinal hernias redemonstrated. Visualized osseous structures are intact. Pat ient has little intra-abdominal fat. IMPRESSION: Highest Assessment Category: 2 MRI Stage: T1c N0 M0 based on review of pelvic images. False negative rates for MRI range from 5-20% depending on risk profile. Assessment Categories: 1 ? Very low (clinically significant cancer is highly unlikely to be present) 2 ? Low (clinically significant cancer is unlikely to be present) 3 ? Intermediate (the presence of clinically significant cancer is equivocal) 4 ? High (clinically significant cancer is likely to be present) 5 ? Very high (clinically significant cancer is highly likely to be present)
== END | disposition home or self-care (01) ==
LOC: RADMRIMAIN 17:49
PROVIDERS: ATTEND Radiology Radiation Oncology
DX: C61 Malignant neoplasm of prostate (principal); K40.20 Bilateral inguinal hernia, without obstruction or gangrene, not specified as recurrent; K57.30 Diverticulosis of large intestine without perforation or abscess without bleeding
CPT/HCPCS: 72197; A9585

== ENCOUNTER → 2021-01-05 | Outpatient (CLI) | payer MEDICARE ==
[2021-01-05 11:48] LABS: Basophils % (A) 0 %; Eosinophils # (A) 0.1 k/uL (0-0.7); Eosinophils % (A) 1 %; HCT 41.8 % (39.0-53.0); HGB 13.9 gm/dL (13.0-17.5); Lymphocytes # (A) 1.8 k/uL (1.0-4.8); Lymphocytes % (A) 22 %; MCH 32.2 pg (25.0-35.0); MCHC 33.3 g/dL (31.0-37.0); MCV 96.8 fL (80.0-100.0); Mean Platelet Volume 6.9; Monocytes # (A) 0.3 k/uL (0-1.0); Monocytes % (A) 4 %; Neutrophils # (A) 6.1 k/uL (1.3-7.7); Neutrophils % (A) 72 %; Platelet Count 235 k/uL (150-450); RBC 4.32 m/uL (4.30-5.90); RDW 12.6 % (11.5-15.5); WBC 8.6 k/uL (3.8-10.6)
[2021-01-05 12:08] LABS: African American GFR (CKD) >90 (>60 ml/min/1.73 sqM); Anion Gap 6 mmol/L; Blood Urea Nitrogen 21 mg/dL (9-20); Calcium 9.4 mg/dL (8.4-10.2); Carbon Dioxide 27 mmol/L (22-30); Chloride 104 mmol/L (98-107); Glucose 118 mg/dL (74-99); Non-African American GFR(CKD) 88 (>60 ml/min/1.73 sqM); Potassium 5.1 mmol/L (3.5-5.1); Sodium 137 mmol/L (137-145)
== END | disposition home or self-care (01) ==
LOC: LABPAT 10:17
PROVIDERS: ATTEND Urology
DX: Z01.812 Encounter for preprocedural laboratory examination (principal); C61 Malignant neoplasm of prostate
CPT/HCPCS: 36415; 80048; 85025

== ENCOUNTER 2021-01-14 06:16 | Day surgery (SDC) | payer MEDICARE ==
[2021-01-12 11:20] VITALS: BMI 24.5
--- NOTE | 2021-01-13 07:21 | P.GSHP ---
History of Present Illness H&P Date: 01/13/21 Chief Complaint: Prostate cancer q the patient is a 70-year-old white male with a history of prostate cancer. His PSA levels in June were 4.1 and 4.3. JOSE revealed a right-sided nodule. He underwent a prostate ultrasound with biopsies. The prostate volume was 25 mL. 6 of 12 biopsies showed [place] 6 adenocarcinoma. The Prolaris score was 3.9. In view of the volume of disease, he has elected to be treated with radiation therapy. He will undergo SpaceOAR implant to reduce the likelihood of rectal toxicity. - Genitourinary (Male) Genitourinary: Reports urinary frequency Past Medical History Past Medical History: Cancer, Hypertension, Prostate Disorder Additional Past Medical History / Comment(s): TREMORS, hx intestional blockage. prostate cancer History of Any Multi-Drug Resistant Organisms: None Reported Past Surgical History: Heart Catheterization, Hernia Repair, Joint Replacement Additional Past Surgical History / Comment(s): RIGHT KNEE REPLACED. RIGHT INGUINAL AND VENTRAL HERNIA REPAIR. 5 TOTAL, intestional blockage repair Past Anesthesia/Blood Transfusion Reactions: Previous Problems w/ Anesthesia Additional Past Anesthesia/Blood Transfusion Reaction / Comment(s): PAST HX OF TROUBLE WAKING UP, ALSO STATES TALKED BELLIGERENT WHEN WAKING UP Smoking Status: Former smoker - Past Family History Father Family Medical History: CVA/TIA Daughter(s) Family Medical History: Cancer Additional Family Medical History / Comment(s): brain cancer Brother(s) Family Medical History: Cancer Additional Family Medical History / Comment(s): prostate cancer Medications and Allergies Home Medications Medication Instructions Recorded Confirmed Type Aspirin [Adult Low Dose Aspirin EC] 81 mg PO DAILY 02/10/16 01/12/21 History Citalopram Hydrobromide [CeleXA] 10 mg PO DAILY 02/10/16 01/12/21 History Spironolactone [Aldactone] 25 mg PO DAILY 02/10/16 01/12/21 History Atorvastatin [Lipitor] 20 mg PO DAILY 08/15/19 01/12/21 History Carvedilol [Coreg] 25 mg PO BID 08/15/19 01/12/21 History Multivit-Min/FA/Lycopen/Lutein 1 tab PO DAILY 08/15/19 01/12/21 History [Centrum Silver Men Tablet] lisinopriL [Zestril] 10 mg PO DAILY 10/04/19 01/12/21 History Allergies Allergy/AdvReac Type Severity Reaction Status Date / Time No Known Allergies Allergy Verified 01/12/21 11:09 Surgical - Exam - General well developed, well nourished, no distress - Respiratory normal respiratory effort - Abdomen Abdomen: soft, non tender, no guarding, no rigid, no rebound - Genitourinary normal penis with no external lesions, testicles non-tender - Rectum Rectum: normal sphincter tone, no masses, other (Right-sided prostate nodule) - Psychiatric oriented to time, oriented to person, oriented to place, speech is normal, memory intact Assessment and Plan (1) Malignant neoplasm of prostate Status: Acute Code(s): C61 - MALIGNANT NEOPLASM OF PROSTATE SNOMED Code(s): 186344548 Plan: The SpaceOar implant has been reviewed in detail with the patient. He understands that the rationale for this is to create separation between the prostate and rectum, thus reducing the risk of radiation proctitis. The material begins to breakdown 12-13 weeks following implant, and is reabsorbed by the body. Risks include anesthesia, bleeding, infection, and perineal discomfort. He understands that if the rectal wall is perforated the procedure will need to be aborted.
[~2021-01-14 06:16] MED LIST changes: -ACETAMINOPHEN TAB 500 MG TAB PO ONE; -DEXAMETHASONE SOD PHOSPHATE 10 MG/ML 1 ML VIAL IV ONE; +DEXAMETHASONE SOD PHOSPHATE 4 MG/ML 1 ML VIAL IV ONE; -HEPARIN SODIUM,PORCINE 5,000 UNIT/ML 1 ML VIAL SQ ONE; -HYDROmorphone 0.5 MG/0.5 ML SYRINGE IVP PRN; -LIDOCAINE 1% (10MG/ML) FOR IV START INTRADERMA PRN
[2021-01-14] MEDS: LACTATED RINGERS 1,000 ML IV SCH ×2 (06:47→07:05)
[2021-01-14] MEDS ORDERED: HYDROmorphone 0.5 MG/0.5 ML SYRINGE IVP PRN (07:00)
[2021-01-14 07:21] VITALS: TEMP 97.1
[2021-01-14] MEDS ORDERED: fentaNYL (PF) 50 MCG/ML 2 ML AMP ONE (07:30)
[2021-01-14] MEDS ORDERED: KETAMINE 10 MG/ML 20 ML VIAL ONE (07:30)
[2021-01-14] MEDS ORDERED: ePHEDrine SULFATE/0.9% NACL/PF 50 MG/5 ML SYRINGE IV ONE (07:30)
[2021-01-14] MEDS ORDERED: GLYCOPYRROLATE 0.2 MG/ML 2 ML VIAL ONE (07:30)
[2021-01-14] MEDS ORDERED: PROPOFOL 10 MG/ML 20 ML VIAL IV ONE (07:30)
[2021-01-14] MEDS ORDERED: MIDAZOLAM 2 MG/2 ML VIAL ONE (07:30)
[2021-01-14] MEDS ORDERED: LIDOCAINE 2% INJ 20 MG/ML SQ ONE ×2 (07:56)
--- NOTE | 2021-01-14 08:31 | P.OP ---
Date of Procedure: 01/14/21 Preoperative Diagnosis: Adenocarcinoma of the prostate Postoperative Diagnosis: Same Procedure(s) Performed: SpaceOAR Implant Anesthesia: MAC Surgeon: Noe Nix Estimated Blood Loss (ml): 0 IV fluids (ml): 400 Pathology: none sent Condition: stable Disposition: PACU Indications for Procedure: The patient is a 70-year-old white male with a history of prostate cancer. His PSA levels in June 2020 were 4.1 and 4.3. JOSE revealed a right-sided nodule. He underwent a prostate ultrasound with biopsies. The prostate volume was 25 mL. 6 of 12 biopsies showed [place] 6 adenocarcinoma. The Prolaris score was 3.9. In view of the volume of disease, he has elected to be treated with radiation therapy. He will undergo SpaceOAR implant to reduce the likelihood of rectal toxicity. Operative Findings: 9 mm separation created between prostate and rectum. Description of Procedure: The patient was taken to the operating room and placed in the dorsolithotomy position, with his legs supported in Dale stirrups. The external genitalia was prepped and draped sterilely. The Bruel and Kjaer transrectal ultrasound probe was placed intrarectally. The prostate was imaged. The probe was then placed within the stabilizing stand. A spinal needle was advanced under ultrasonic guidance to the level of the urogenital diaphragm, and lidocaine was used to infiltrate the tissues as the needle was withdrawn. Next, the SpaceOAR needle was passed through the midline of the perineum, 1-2 cm anterior to the anal opening. The needle was slowly advanced under ultrasonic guidance until the needle tip was located within the fat plane between the prostate and rectum, at the level of the mid prostate gland. The needle was confirmed to be midline on the axial imaging. A small amount of normal saline was injected for hydrodissection. Next, the SpaceOAR components were mixed and loaded into the Y connector per protocol. The Y connector was then connected to the needle, and the components were injected slowly over a course of approximately 12 seconds. A total of [10] ml was injected. Significant distance was created between the prostate and rectum, as desired. It should be noted that at no point was there any concern of rectal perforation. The needle was withdrawn, as well as the transrectal ultrasound probe, and the procedure was terminated. The patient tolerated the procedure well and was taken to the recovery room in stable condition.
[2021-01-14 08:45] VITALS: BP 90/52; PULSE 61; RESP 18
== END 2021-01-14 08:55 | disposition home or self-care (01) ==
LOC: OR 06:16
PROVIDERS: ATTEND Urology
DX: C61 Malignant neoplasm of prostate (principal); I10 Essential (primary) hypertension; Z92.3 Personal history of irradiation; Z87.891 Personal history of nicotine dependence; R25.1 Tremor, unspecified; Z79.899 Other long term (current) drug therapy; Z79.82 Long term (current) use of aspirin
CPT/HCPCS: 84132; 55874; C1889; J2001; J2250; J1100; J0690; J2405; J3010; J2704

== ENCOUNTER → 2023-02-15 | Outpatient (CLI) | payer MEDICARE | LOC: CPPFTMAIN 10:10 | PROVIDERS: ATTEND Family Medicine | DX: J44.1 Chronic obstructive pulmonary disease with (acute) exacerbation (principal); F17.200 Nicotine dependence, unspecified, uncomplicated; Z79.899 Other long term (current) drug therapy | CPT/HCPCS: 94060; 94726; 94729 ==

== ENCOUNTER 2023-05-30 18:30 | Inpatient (IN) | payer MEDICARE ==
--- NOTE | 2023-05-30 19:44 | ED ---
General Adult HPI - General Source: patient Mode of arrival: ambulatory Limitations: no limitations <Lindsey Torre - Last Filed: 05/30/23 19:42> - General Source: RN notes reviewed, old records reviewed Mode of arrival: ambulatory Limitations: no limitations - History of Present Illness -: hour(s) Radiation: non-radiation Severity scale (1-10): 0 Consistency: intermittent Improves with: none <Shreyas Fay - Last Filed: 06/07/23 11:27> - General Chief complaint: GI Bleed Stated complaint: blood in stool Time Seen by Provider: 05/30/23 19:42 - History of Present Illness Initial comments: 73 year old male presenting with CC of bright red blood per rectum with bowel movement today. No abdominal pain. No fever or vomiting. No blood thinners. He had a colonoscopy within the last year which she states "was ok". (Lindsey Torre) This is a 73-year-old male with bright red blood per rectum which happened with a bowel movement today. Patient states normal bowel movement last year no travel history no sick contacts no abdominal pain, no significant medical history takes no new medications no blood thinners. (Shreyas Fay) - Related Data Home Medications Medication Instructions Recorded Confirmed Atorvastatin [Lipitor] 20 mg PO DAILY 08/15/19 05/30/23 Mv-Min/Folic/K1/Lycopen/Lutein 1 tab PO DAILY 08/15/19 05/30/23 [Centrum Silver Men Tablet] Albuterol Sulfate [Ventolin HFA] 2 puff INHALATION RT-Q4H PRN 05/30/23 05/30/23 Citalopram Hydrobromide [CeleXA] 20 mg PO DAILY 05/30/23 05/30/23 Previous Rx's Medication Instructions Recorded Amoxic-Pot Clav 500-125 mg 1 each PO BID 3 Days #6 tab 06/04/23 [Augmentin 500-125 mg] Ferrous Sulfate [Iron (65 MG 325 mg PO BID-W/MEALS 30 Days #60 06/04/23 Elemental)] tab Omeprazole [PriLOSEC] 40 mg PO AC-BRKFST #90 cap 06/04/23 Pantoprazole Sodium [Protonix] 40 mg PO AC-BID 60 Days #60 tab 02/04/24 lisinopriL [Zestril] 5 mg PO DAILY 30 Days #30 tab 06/04/23 Allergies Allergy/AdvReac Type Severity Reaction Status Date / Time No Known Allergies Allergy Verified 05/30/23 22:47 Review of Systems ROS Other: All systems not noted in ROS Statement are negative. <Lindsey Torre - Last Filed: 05/30/23 19:42> ROS Other: All systems not noted in ROS Statement are negative. <Shreyas Fay - Last Filed: 06/07/23 11:27> ROS Statement: Those systems with pertinent positive or pertinent negative responses have been documented in the HPI. Past Medical History Past Medical History: Hypertension Additional Past Medical History / Comment(s): INCISIONAL HERNIA, TREMORS, intestional blockage History of Any Multi-Drug Resistant Organisms: None Reported Past Surgical History: Joint Replacement Additional Past Surgical History / Comment(s): RIGHT KNEE REPLACED. RIGHT INGUINAL AND VENTRAL HERNIA REPAIR. 4 TOTAL, intestional blockage repair Past Anesthesia/Blood Transfusion Reactions: Previous Problems w/ Anesthesia Additional Past Anesthesia/Blood Transfusion Reaction / Comment(s): PAST HX OF TROUBLE WAKING UP, ALSO STATES TALKED BELLIGERENT WHEN WAKING UP Past Psychological History: No Psychological Hx Reported Past Alcohol Use History: None Reported Past Drug Use History: None Reported - Past Family History Father Family Medical History: CVA/TIA Daughter(s) Family Medical History: Cancer Additional Family Medical History / Comment(s): brain cancer Brother(s) Family Medical History: Cancer Additional Family Medical History / Comment(s): prostate cancer <Lindsey Torre - Last Filed: 05/30/23 19:42> General Exam Limitations: no limitations <Lindsey Torre - Last Filed: 05/30/23 19:42> General appearance: alert, in no apparent distress, anxious Head exam: Present: atraumatic, normocephalic, normal inspection Eye exam: Present: normal appearance, PERRL, EOMI. Absent: scleral icterus, conjunctival injection, periorbital swelling ENT exam: Present: normal exam, mucous membranes moist Neck exam: Present: normal inspection. Absent: tenderness, meningismus, lymphadenopathy Respiratory exam: Present: normal lung sounds bilaterally. Absent: respiratory distress, wheezes, rales, rhonchi, stridor Cardiovascular Exam: Present: regular rate, normal rhythm, normal heart sounds. Absent: systolic murmur, diastolic murmur, rubs, gallop, clicks GI/Abdominal exam: Present: soft, normal bowel sounds. Absent: distended, tenderness, guarding, rebound, rigid Extremities exam: Present: normal inspection, full ROM, normal capillary refill. Absent: tenderness, pedal edema, joint swelling, calf tenderness Back exam: Present: normal inspection Neurological exam: Present: alert, oriented X3, CN II-XII intact Psychiatric exam: Present: normal affect, normal mood Skin exam: Present: warm, dry, intact, normal color. Absent: rash <Shreyas Fay - Last Filed: 06/07/23 11:27> - General Exam Comments Initial Comments: Visual Physical Exam Vital signs reviewed General: Well-appearing, nontoxic, no acute distress. Head: Normocephalic, atraumatic Eyes: PERRLA, EOMI ENT: Airway patent Chest: Nonlabored breathing Skin: No visual rash, normal skin tone Neuro: Alert and oriented 3 Musculoskeletal: No gross abnormalities (Lindsey Torre) Course <Shreyas Fay - Last Filed: 06/07/23 11:27> Vital Signs 05/30/23 05/30/23 05/31/23 18:38 22:10 02:25 Temperature 98 F Pulse Rate 90 80 85 Respiratory 16 18 18 Rate Blood Pressure 111/76 116/82 103/78 O2 Sat by Pulse 98 96 96 Oximetry 05/31/23 05/31/23 05/31/23 05:31 08:41 12:03 Temperature 99.4 F 98.1 F Pulse Rate 85 72 75 Respiratory 18 20 20 Rate Blood Pressure 105/70 107/69 95/67 O2 Sat by Pulse 95 96 96 Oximetry 05/31/23 13:24 Temperature Pulse Rate 83 Respiratory 16 Rate Blood Pressure 98/63 O2 Sat by Pulse 99 Oximetry - Reevaluation(s) Reevaluation #1: 05/30/23 22:23 Medical records reviewed (Shreyas Fay) Reevaluation #2: 05/30/23 22:23 Patient has no significant active GI bleed (Shreyas Fay) Reevaluation #3: 05/30/23 22:23 Patient informed of results and questions answered (Shreyas Fay) Reevaluation #4: 05/30/23 22:23 Was pt. sent in by a medical professional or institution ([facility] Killian, [employer], urgent care, hospital, or halfway...) When possible be specific @ -no Did you speak to anyone other than the patient for history (EMS, parent, family, police, friend...)? What history was obtained from this source @ -no Did you review nursing and triage notes (agree or disagree)? Why? @ -agree Are old charts reviewed (outside hosp., previous admission, EMS record, old EKG, old radiological studies, urgent care reports/EKG's, halfway records)? Report findings @ -yes Differential Diagnosis (chest pain, altered mental status, abdominal pain women, abdominal pain men, vaginal bleeding, weakness, fever, dyspnea, syncope, headache, dizziness, GI bleed, back pain, seizure, CVA, palpatations, mental health, musculoskeletal)? @ -prior EKG interpreted by me (3pts min.). @ -no X-rays interpreted by me (1pt min.). @ -no CT interpreted by me (1pt min.). @ -no U/S interpreted by me (1pt. min.). @ -no What testing was considered but not performed or refused? (CT, X-rays, U/S, labs)? Why? @ -none What meds were considered but not given or refused? Why? @ -none Did you discuss the management of the patient with other professionals (professionals i.e. [facility] Killian, [employer], lab, RT, psych nurse, social media sr strategy manager, fertilizer mixer, teacher, chief security officer, welfare case worker)? Give summary @ -no Was smoking cessation discussed for >3mins.? @ -no Was critical care preformed (if so, how long)? @ -no Were there social determinants of health that impacted care today? How? (Homelessness, low income, unemployed, alcoholism, drug addiction, transport ation, low edu. Level, literacy, decrease access to med. care, custodial, rehab)? @ -none Was there de-escalation of care discussed even if they declined (Discuss DNR or withdrawal of care, Hospice)? DNR status @ -no What co-morbidities impacted this encounter? (DM, HTN, Smoking, COPD, CAD, Cancer, CVA, ARF, Chemo, Hep., AIDS, mental health diagnosis, sleep apnea, morbid obesity)? @ -none Was patient admitted / discharged? Hospital course, mention meds given and route, prescriptions, significant lab abnormalities, going to OR and other pertinent info. @ - 73 male for blood in stool. Patient will be admitted for bleeding, GI bleed with history of colonoscopy being negative, patient has no active bleeding here in the ER is not near syncopal Admitted Undiagnosed new problem with uncertain prognosis? @ -no Drug Therapy requiring intensive monitoring for toxicity (Heparin, Nitro, Insulin, Cardizem)? @ -no Were any procedures done? @ -no Diagnosis/symptom? @ -GI bleed Acute, or Chronic, or Acute on Chronic? @ -Acute Uncomplicated (without systemic symptoms) or Complicated (systemic symptoms)? @ -Complicated Side effects of treatment? @ -no Exacerbation, Progression, or Severe Exacerbation? @ -exacerbation Poses a threat to life or bodily function? How? (Chest pain, USA, NH, pneumonia, PE, COPD, DKA, ARF, appy, cholecystitis, CVA, Diverticulitis, Homicidal, Suicidal, threat to staff... and all critical care pts) @ -yes significant GI bleed (Shreyas Fay) - Consultations Consultation #1: Spoke with [facility] who agreed to admit this patient (Shreyas Fay) Medical Decision Making - Lab Data Result diagrams: 06/04/23 10:13 06/04/23 10:13 <Shreyas Fay - Last Filed: 06/07/23 11:27> - Medical Decision Making 73 male for blood in stool. Patient will be admitted for bleeding, GI bleed with history of colonoscopy being negative, patient has no active bleeding here in the ER is not near syncopal (Shreyas Fay) - Lab Data Lab Results 05/30/23 05/30/23 05/30/23 Range/Units 20:07 20:07 20:07 WBC 11.2 H (3.8-10.6) k/uL RBC 3.64 L (4.30-5.90) m/uL Hgb 11.5 L (13.0-17.5) gm/dL Hct 34.1 L (39.0-53.0) % MCV 93.8 (80.0-100.0) fL MCH 31.6 (25.0-35.0) pg MCHC 33.7 (31.0-37.0) g/dL RDW 12.6 (11.5-15.5) % Plt Count 276 (150-450) k/uL MPV 7.3 Neutrophils % 87 % Lymphocytes % 8 % Monocytes % 4 % Eosinophils % 0 % Basophils % 0 % Neutrophils # 9.7 H (1.3-7.7) k/uL Lymphocytes # 0.9 L (1.0-4.8) k/uL Monocytes # 0.4 (0-1.0) k/uL Eosinophils # 0.0 (0-0.7) k/uL Basophils # 0.0 (0-0.2) k/uL PT 11.3 (10.0-12.5) sec INR 1.0 (<1.2) APTT 21.7 L (22.0-30.0) sec Sodium 135 L (137-145) mmol/L Potassium 5.4 H (3.5-5.1) mmol/L Chloride 105 (98-107) mmol/L Carbon Dioxide 22 (22-30) mmol/L Anion Gap 8 mmol/L BUN 53 H (9-20) mg/dL Creatinine 0.80 (0.66-1.25) mg/dL Est GFR (CKD-EPI)AfAm >90 (>60 ml/min/1.73 sqM) Est GFR (CKD-EPI)NonAf 88 (>60 ml/min/1.73 sqM) Glucose 111 H (74-99) mg/dL Plasma Lactic Acid Jonathan (0.7-2.0) mmol/L Calcium 8.5 (8.4-10.2) mg/dL Phosphorus (2.5-4.5) mg/dL Magnesium (1.6-2.3) mg/dL Total Bilirubin 0.2 (0.2-1.3) mg/dL AST 16 L (17-59) U/L ALT 16 (4-49) U/L Alkaline Phosphatase 47 (38-126) U/L Total Protein 6.0 L (6.3-8.2) g/dL Albumin 3.3 L (3.5-5.0) g/dL Lipase 71 (23-300) U/L Blood Type Blood Type Confirm Blood Type Recheck Bld Type Recheck Status Antibody Screen Crossmatch Spec Expiration Date 05/30/23 05/30/23 05/31/23 Range/Units 20:07 20:07 09:29 WBC (3.8-10.6) k/uL RBC (4.30-5.90) m/uL Hgb (13.0-17.5) gm/dL Hct (39.0-53.0) % MCV (80.0-100.0) fL MCH (25.0-35.0) pg MCHC (31.0-37.0) g/dL RDW (11.5-15.5) % Plt Count (150-450) k/uL MPV Neutrophils % % Lymphocytes % % Monocytes % % Eosinophils % % Basophils % % Neutrophils # (1.3-7.7) k/uL Lymphocytes # (1.0-4.8) k/uL Monocytes # (0-1.0) k/uL Eosinophils # (0-0.7) k/uL Basophils # (0-0.2) k/uL PT (10.0-12.5) sec INR (<1.2) APTT (22.0-30.0) sec Sodium 134 L (137-145) mmol/L Potassium 4.2 (3.5-5.1) mmol/L Chloride 108 H (98-107) mmol/L Carbon Dioxide 23 (22-30) mmol/L Anion Gap 3 mmol/L BUN 51 H (9-20) mg/dL Creatinine 0.72 (0.66-1.25) mg/dL Est GFR (CKD-EPI)AfAm >90 (>60 ml/min/1.73 sqM) Est GFR (CKD-EPI)NonAf >90 (>60 ml/min/1.73 sqM) Glucose 91 (74-99) mg/dL Plasma Lactic Acid Jonathan 1.6 (0.7-2.0) mmol/L Calcium 7.3 L (8.4-10.2) mg/dL Phosphorus 3.0 (2.5-4.5) mg/dL Magnesium 1.5 L (1.6-2.3) mg/dL Total Bilirubin 0.2 (0.2-1.3) mg/dL AST 14 L (17-59) U/L ALT 12 (4-49) U/L Alkaline Phosphatase 35 L (38-126) U/L Total Protein 4.0 L (6.3-8.2) g/dL Albumin 2.0 L (3.5-5.0) g/dL Lipase (23-300) U/L Blood Type Blood Type Confirm A Positive Blood Type Recheck Bld Type Recheck Status Antibody Screen Crossmatch Spec Expiration Date 05/31/23 06/01/23 06/01/23 Range/Units 11:22 08:32 08:32 WBC 9.8 (3.8-10.6) k/uL RBC 2.10 L (4.30-5.90) m/uL Hgb 6.5 L* D (13.0-17.5) gm/dL Hct 19.3 L* (39.0-53.0) % MCV 92.0 (80.0-100.0) fL MCH 31.1 (25.0-35.0) pg MCHC 33.8 (31.0-37.0) g/dL RDW 13.0 (11.5-15.5) % Plt Count 187 (150-450) k/uL MPV 7.5 Neutrophils % 67 % Lymphocytes % 28 % Monocytes % 4 % Eosinophils % 1 % Basophils % 0 % Neutrophils # 6.5 (1.3-7.7) k/uL Lymphocytes # 2.7 (1.0-4.8) k/uL Monocytes # 0.4 (0-1.0) k/uL Eosinophils # 0.1 (0-0.7) k/uL Basophils # 0.0 (0-0.2) k/uL PT (10.0-12.5) sec INR (<1.2) APTT (22.0-30.0) sec Sodium 134 L (137-145) mmol/L Potassium 4.5 (3.5-5.1) mmol/L Chloride 109 H (98-107) mmol/L Carbon Dioxide 26 (22-30) mmol/L Anion Gap -1 mmol/L BUN 30 H (9-20) mg/dL Creatinine 0.68 (0.66-1.25) mg/dL Est GFR (CKD-EPI)AfAm >90 (>60 ml/min/1.73 sqM) Est GFR (CKD-EPI)NonAf >90 (>60 ml/min/1.73 sqM) Glucose 100 H (74-99) mg/dL Plasma Lactic Acid Jonathan (0.7-2.0) mmol/L Calcium 7.7 L (8.4-10.2) mg/dL Phosphorus (2.5-4.5) mg/dL Magnesium 2.0 (1.6-2.3) mg/dL Total Bilirubin (0.2-1.3) mg/dL AST (17-59) U/L ALT (4-49) U/L Alkaline Phosphatase (38-126) U/L Total Protein (6.3-8.2) g/dL Albumin (3.5-5.0) g/dL Lipase (23-300) U/L Blood Type A Positive Blood Type Confirm Blood Type Recheck No Previous Record Bld Type Recheck Status CABO Indicated Antibody Screen NEGATIVE Crossmatch See Detail Spec Expiration Date 06/03/20232321 Disposition <Lindsey Torre - Last Filed: 05/30/23 19:42> Is patient prescribed a controlled substance at d/c from ED?: No Time of Disposition: 22:25 <Shreyas Fay - Last Filed: 06/07/23 11:27> Clinical Impression: GI bleed Disposition: ADMITTED IP TO THIS [facility] Condition: Fair
[2023-05-30 20:11] LABS: Basophils % (A) 0 %; Eosinophils % (A) 0 %; HCT 34.1 % (39.0-53.0); HGB 11.5 gm/dL (13.0-17.5); Lymphocytes # (A) 0.9 k/uL (1.0-4.8); Lymphocytes % (A) 8 %; MCH 31.6 pg (25.0-35.0); MCHC 33.7 g/dL (31.0-37.0); MCV 93.8 fL (80.0-100.0); Mean Platelet Volume 7.3; Monocytes # (A) 0.4 k/uL (0-1.0); Monocytes % (A) 4 %; Neutrophils # (A) 9.7 k/uL (1.3-7.7); Neutrophils % (A) 87 %; Platelet Count 276 k/uL (150-450); RBC 3.64 m/uL (4.30-5.90); RDW 12.6 % (11.5-15.5); WBC 11.2 k/uL (3.8-10.6)
[2023-05-30 20:26] LABS: ALT 16 U/L (4-49); AST 16 U/L (17-59); African American GFR (CKD) >90 (>60 ml/min/1.73 sqM); Albumin 3.3 g/dL (3.5-5.0); Alkaline Phosphatase 47 U/L (38-126); Anion Gap 8 mmol/L; Blood Urea Nitrogen 53 mg/dL (9-20); Calcium 8.5 mg/dL (8.4-10.2); Carbon Dioxide 22 mmol/L (22-30); Chloride 105 mmol/L (98-107); Glucose 111 mg/dL (74-99); Lipase 71 U/L (23-300); Non-African American GFR(CKD) 88 (>60 ml/min/1.73 sqM); Potassium 5.4 mmol/L (3.5-5.1); Sodium 135 mmol/L (137-145); Total Bilirubin 0.2 mg/dL (0.2-1.3)
[2023-05-30 20:30] LABS: Prothrombin Time 11.3 sec (10.0-12.5)
[2023-05-30 20:37] LABS: Partial Thromboplastin Time 21.7 sec (22.0-30.0)
[2023-05-30] MEDS ORDERED: NALOXONE 0.4 MG/ML 1 ML VIAL IV PRN (22:21)
[2023-05-30] MEDS ORDERED: ONDANSETRON 4 MG/2 ML VIAL IVP PRN (22:21)
[2023-05-30] MEDS ORDERED: MORPHINE SULFATE 4 MG/ML SYRINGE IV PRN (22:21)
[2023-05-30] MEDS: SODIUM CHLORIDE 0.9% 1,000 ML IV SCH (22:48)
[2023-05-30] MEDS: MELATONIN 3 MG TABLET PO SCH (22:48)
--- NOTE | 2023-05-31 08:07 | P.HPIM ---
History of Present Illness This is a pleasant 73 years old male with past medical history of hypertension. He follow-up with instructional services specialist Dr. Juarez for his high blood pressure he was placed on aspirin 81 mg daily. His PCP is Dr. Hurtado. Patient presents because of episodes of blood in his stool that fills about one cup that happened yesterday afternoon and this morning. Patient denies abdominal pain or vomiting or bleeding from anywhere else. He states that he has chronic diarrhea for months once a day. He denies urinary symptoms. No chest pain. No headache dizziness weakness or numbness. Patient currently not a smoker but he has history of COPD. 3 days ago he went to his clinic offices and he was treated with prednisone, antibiotic and he took Motrin for generalized body ache. He is feeling better, breathing and coughing are improving. He states he still left 2 days of treatment at home. He denies alcohol or illicit drugs. Hemodynamically stable, blood pressure on the low normal side systolic around 100 110. He is currently on normal saline 75 mL/h going to give him another blood loss of 500 mL of normal saline. Aspirin was placed on hold as well as Motrin and steroids and is currently on IV Protonix once daily. Hemoglobin is 11.5, WBC is 11.2. Potassium 5.4 and creatinine within the reference range. INR, BMP and liver enzymes were unremarkable Patient states that recently he had colonoscopy with Dr. Mckay which was unremarkable as per patient Review of Systems Review of systems CONSTITUTIONAL: No fever, no malaise, no fatigue. HEENT: No recent visual problems or hearing problems. Denied any sore throat. CARDIOVASCULAR: No orthopnea, PND, no palpitations, no syncope. PULMONARY: No shortness of breath, no cough, no hemoptysis. GASTROINTESTINAL: , no nausea, no vomiting, Normoactive bowel sounds. NEUROLOGICAL: No headaches, no weakness, no numbness. HEMATOLOGICAL: Denies any bleeding or petechiae. GENITOURINARY: Denies any burning micturition, frequency, or urgency. MUSCULOSKELETAL/RHEUMATOLOGICAL: Denies any joint pain, swelling, or any muscle pain. ENDOCRINE: Denies any polyuria or polydipsia. Past Medical History Past Medical History: Hypertension Additional Past Medical History / Comment(s): INCISIONAL HERNIA, TREMORS, intestional blockage History of Any Multi-Drug Resistant Organisms: None Reported Past Surgical History: Joint Replacement Additional Past Surgical History / Comment(s): RIGHT KNEE REPLACED. RIGHT INGUINAL AND VENTRAL HERNIA REPAIR. 4 TOTAL, intestional blockage repair Past Anesthesia/Blood Transfusion Reactions: Previous Problems w/ Anesthesia Additional Past Anesthesia/Blood Transfusion Reaction / Comment(s): PAST HX OF TROUBLE WAKING UP, ALSO STATES TALKED BELLIGERENT WHEN WAKING UP Past Psychological History: No Psychological Hx Reported Past Alcohol Use History: None Reported Past Drug Use History: None Reported - Past Family History Father Family Medical History: CVA/TIA Daughter(s) Family Medical History: Cancer Additional Family Medical History / Comment(s): brain cancer Brother(s) Family Medical History: Cancer Additional Family Medical History / Comment(s): prostate cancer Medications and Allergies Home Medications Medication Instructions Recorded Confirmed Type Aspirin [Adult Low Dose Aspirin EC] 81 mg PO DAILY 02/10/16 05/30/23 History Spironolactone [Aldactone] 25 mg PO DAILY 02/10/16 05/30/23 History Atorvastatin [Lipitor] 20 mg PO DAILY 08/15/19 05/30/23 History Mv-Min/Folic/K1/Lycopen/Lutein 1 tab PO DAILY 08/15/19 05/30/23 History [Centrum Silver Men Tablet] carvediloL [Coreg] 25 mg PO BID 08/15/19 05/30/23 History lisinopriL [Zestril] 20 mg PO DAILY 10/04/19 05/30/23 History Albuterol Sulfate [Ventolin HFA] 2 puff INHALATION RT-Q4H PRN 05/30/23 05/30/23 History Citalopram Hydrobromide [CeleXA] 20 mg PO DAILY 05/30/23 05/30/23 History Doxycycline Hyclate 100 mg PO Q12H 05/30/23 05/30/23 History predniSONE 50 mg PO DAILY 05/30/23 05/30/23 History Allergies Allergy/AdvReac Type Severity Reaction Status Date / Time No Known Allergies Allergy Verified 05/30/23 22:47 Physical Exam Vitals: Vital Signs Temp Pulse Resp BP Pulse Ox 05/31/23 05:31 85 18 105/70 95 05/31/23 02:25 85 18 103/78 96 05/30/23 22:10 80 18 116/82 96 05/30/23 18:38 98 F 90 16 111/76 98 Intake and Output 05/30/23 05/31/23 05/31/23 22:59 06:59 14:59 Other: Weight 63.503 kg GENERAL: The patient is alert and oriented x3, not in any acute distress. Well developed, well nourished. HEENT: Pupils are round and equally reacting to light. EOMI. No scleral icterus. No conjunctival pallor. Normocephalic, atraumatic. No pharyngeal erythema. No thyromegaly. CARDIOVASCULAR: S1 and S2 present. No murmurs, rubs, or gallops. PULMONARY: Chest is clear to auscultation, no wheezing , no crackles. -ABDOMEN: Soft, very mild RLQ tenderness with no rebound tenderness or guarding, nondistended, normoactive bowel sounds. No palpable organomegaly. MUSCULOSKELETAL: No joint swelling or deformity. EXTREMITIES: No cyanosis, clubbing, or pedal edema. NEUROLOGICAL: Gross neurological examination did not reveal any focal deficits. SKIN: No rashes. no petechiae. Results CBC & Chem 7: 05/30/23 20:07 05/30/23 20:07 Labs: Abnormal Lab Results - Last 24 Hours (Table) 05/30/23 05/30/23 05/30/23 Range/Units 20:07 20:07 20:07 WBC 11.2 H (3.8-10.6) k/uL RBC 3.64 L (4.30-5.90) m/uL Hgb 11.5 L (13.0-17.5) gm/dL Hct 34.1 L (39.0-53.0) % Neutrophils # 9.7 H (1.3-7.7) k/uL Lymphocytes # 0.9 L (1.0-4.8) k/uL APTT 21.7 L (22.0-30.0) sec Sodium 135 L (137-145) mmol/L Potassium 5.4 H (3.5-5.1) mmol/L BUN 53 H (9-20) mg/dL Glucose 111 H (74-99) mg/dL AST 16 L (17-59) U/L Total Protein 6.0 L (6.3-8.2) g/dL Albumin 3.3 L (3.5-5.0) g/dL Assessment and Plan Assessment: Acute GI bleed, tenderness blood per rectum Acute blood loss anemia Hypertension Plan: Continue with IV fluid Hold aspirin and Motrin Continue with IV Protonix GI and surgery consult consider CT of the abdomen Labs and medication were reviewed.. Continue same treatment. Continue with symptomatic treatment. Resume home medication. Monitor labs and vitals. DVT and GI prophylaxis. Further recommendations as per clinical course of the patient DVT prophylaxis: no Subcutaneous heparin GI Prophylaxis: Ppi
[2023-05-31] MEDS ORDERED: IOPAMIDOL CONTRAST (ORAL USE) VIAL PO PRN (08:11)
[2023-05-31] MEDS ORDERED: RX INFO: IV CONTRAST WAS GIVEN 1 EACH MISC MISCELLANE PRN (08:12)
[2023-05-31] MEDS: SODIUM CHLORIDE 0.9% 500 ML 500 ML IV ONE (08:27)
[2023-05-31] MEDS ORDERED: ACETAMINOPHEN TAB 325 MG TAB PO PRN (08:41)
[2023-05-31] MEDS: PANTOPRAZOLE 40 MG/10 ML VIAL IV SCH ×2 (08:43→20:30)
[2023-05-31] MEDS: SODIUM CHLORIDE 0.9% 1,000 ML IV ONE (08:49)
--- NOTE | 2023-05-31 09:42 | CT ---
EXAMINATION TYPE: CT angio thor/abd pel aorta CT DLP: 1285 mGycm, Automated exposure control for dose reduction was used. DATE OF EXAM: 05/31/2023 9:24 AM COMPARISON: CT abdomen and pelvis 08/15/2019. CLINICAL INDICATION:Male, 73 years old with history of sob; PHH, gi bleed TECHNIQUE: GI bleed protocol: Multiple axial CT images of the chest and abdomen were obtained prior t o the administration intravenous contrast. Then multiple axial CT images of the chest, abdomen and pe lvis were obtained after the uneventful administration of 100 mL of Isovue-370 intravenously. FINDINGS: Vasculature: Ascending thoracic aortic aneurysm measuring up to 4.5 cm. Aortic root measures up to 3. 5 cm. Descending thoracic aorta measures up to 2.7 cm. On vaginal three-vessel aortic arch. Infrarena l abdominal aortic fusiform aneurysm measuring up to 3.6 cm. Mural thrombus identified within the abd ominal aorta. The bilateral renal arteries are widely patent. There are 2 left renal arteries. The ce liac access and SMA are widely patent. The GRICELDA is patent. No evidence for intramural hematoma or diss ection of the aorta. Lungs/pleura: No pleural effusion or pneumothorax. Patchy scattered reticular groundglass opacities w ithin the bilateral lung bases. Moderate centrilobular emphysematous changes. 5 mm nodule along the r ight minor fissure (series 506, image 83). Biapical pleural-parenchymal scarring. Heart: Within normal limits. Moderate coronary arterial calcifications. No pericardial effusion. Mediastinum: No gross evidence of adenopathy. Lower Neck: No significant findings. Soft tissues: Bilateral gynecomastia. Abdomen: Liver: Unremarkable. Gallbladder and Bile ducts: Unremarkable. Pancreas: Unremarkable. Spleen: Unremarkable. Adrenal glands: Unremarkable. Kidneys and Ureters: Unremarkable. No hydronephrosis. Stomach and Bowel: Circumferential wall thickening of the underdistended stomach. Hyperdense material on the arterial phase identified within the proximal duodenum (series 501, image 184). Not present o n the noncontrast phase. This changes the morphology on the delayed phase. No other hyperdense materi al identified within the bowel. No evidence of bowel obstruction. Colonic diverticulosis without franklyn dence for acute diverticulitis. Peritoneum: No evidence of pneumoperitoneum, free fluid, or adenopathy. Bladder: Unremarkable. Reproductive: Unremarkable. Abdominal wall/soft tissues: Unremarkable. Musculoskeletal: The osseous structures appear intact. Multilevel degenerative changes of the spine. Grade I anterolisthesis of L4 on L5. No pars defects. Prominent facet arthropathy at L4-L5. IMPRESSION: 1. Findings most consistent with acute GI bleed within the proximal duodenum. 2. Ascending thoracic aortic aneurysm measuring up to 4.5 cm. Additional infrarenal abdominal aortic aneurysm measuring up to 3.6 cm. 3. Moderate COPD changes. 4. Few scattered reticular and groundglass opacities within the bilateral lower lobe suspicious for a n infectious/inflammatory process. Additional 5 mm nodule along the right minor fissure which likely represents an intrafissural lymph node. According to Fleischner criteria, in a low-risk patient no fo llow-up is recommended. In a high-risk patient as an optional CT chest in 12 months. 5. Circumferential wall thickening of the underdistended stomach which may be represent an infectious /inflammatory process versus underdistention. Consider direct visualization. 6. Colonic diverticulosis.
[2023-05-31 10:17] LABS: ALT 12 U/L (4-49); AST 14 U/L (17-59); African American GFR (CKD) >90 (>60 ml/min/1.73 sqM); Alkaline Phosphatase 35 U/L (38-126); Anion Gap 3 mmol/L; Blood Urea Nitrogen 51 mg/dL (9-20); Calcium 7.3 mg/dL (8.4-10.2); Carbon Dioxide 23 mmol/L (22-30); Chloride 108 mmol/L (98-107); Glucose 91 mg/dL (74-99); Magnesium 1.5 mg/dL (1.6-2.3); Non-African American GFR(CKD) >90 (>60 ml/min/1.73 sqM); Potassium 4.2 mmol/L (3.5-5.1); Sodium 134 mmol/L (137-145); Total Bilirubin 0.2 mg/dL (0.2-1.3)
--- NOTE | 2023-05-31 11:16 | P.CONS ---
History of Present Illness - Reason for Consult Consult date: 05/31/23 GI bleed Requesting physician: Shreyas Fay - Chief Complaint GI bleed bloody bowel movements - History of Present Illness This is a pleasant 73-year-old white male who presented to the emergency department yesterday evening with concerns of rectal bleeding. Past medical history includes hypertension, hernia repair and small bowel obstruction. He states he started having bright red or dark red bleeding yesterday afternoon nonpainful bloody bowel movements. States he had about 4 they have darkened since then and this morning he had black stool. Again denies any abdominal pain, nausea or vomiting. He denies any anticoagulation, he does take daily 81 mg aspirin, no NSAID use. No history of GI bleed, no peptic ulcer or acid reflux. He had a recent screening colonoscopy with About 05/06/2023 which she states was normal. He did have a CTA thoracic abdomen pelvis aorta completed which reported findings most consistent with acute GI bleed within the proximal duodenum. Circumferential wall thickening of the under distended stomach hyperdense material on the arterial phase identified within the proximal duodenum. Not present on the noncontrast phase. Pending labs WBC 11.2 hemoglobin 11.5 hematocrit 34 platelet count 276,000 INR 1.0 sodium 135 potassium 5.4 BUN 53 creatinine 0.8 total bilirubin 0.2 AST 16 ALT 16 alkaline phosphatase 47 Review of Systems REVIEW OF SYSTEMS: CARDIOPULMONARY: No chest pain or shortness of breath. Gastrointestinal: No epigastric or abdominal pain. No cramping. No nausea or vomiting. No hematemesis, coffee-ground emesis. Red and maroon-colored stool as well as black stool x 1 day. GENITOURINARY: No dysuria or hematuria. MUSCULOSKELETAL: Reports normal range of motion. SKIN: No rashes. No jaundice. ENDOCRINE: No chills, fevers. No excessive weight gain or loss. No polydipsia or polyuria. PSYCHIATRIC: Unremarkable. NEUROLOGY: No change in mental status. Denies dizziness, headache. ENT: Vision unremarkable. CONSTITUTIONAL: No recent weight loss. No fever, chills, night sweats. Past Medical History Past Medical History: Hypertension Additional Past Medical History / Comment(s): INCISIONAL HERNIA, TREMORS, intestional blockage History of Any Multi-Drug Resistant Organisms: None Reported Past Surgical History: Joint Replacement Additional Past Surgical History / Comment(s): RIGHT KNEE REPLACED. RIGHT INGUINAL AND VENTRAL HERNIA REPAIR. 4 TOTAL, intestional blockage repair Past Anesthesia/Blood Transfusion Reactions: Previous Problems w/ Anesthesia Additional Past Anesthesia/Blood Transfusion Reaction / Comm: PAST HX OF TROUBLE WAKING UP, ALSO STATES TALKED BELLIGERENT WHEN WAKING UP Past Psychological History: No Psychological Hx Reported Past Alcohol Use History: None Reported Past Drug Use History: None Reported - Past Family History Father Family Medical History: CVA/TIA Daughter(s) Family Medical History: Cancer Additional Family Medical History / Comment(s): brain cancer Brother(s) Family Medical History: Cancer Additional Family Medical History / Comment(s): prostate cancer Medications and Allergies Home Medications Medication Instructions Recorded Confirmed Type Aspirin [Adult Low Dose Aspirin EC] 81 mg PO DAILY 02/10/16 05/30/23 History Spironolactone [Aldactone] 25 mg PO DAILY 02/10/16 05/30/23 History Atorvastatin [Lipitor] 20 mg PO DAILY 08/15/19 05/30/23 History Mv-Min/Folic/K1/Lycopen/Lutein 1 tab PO DAILY 08/15/19 05/30/23 History [Centrum Silver Men Tablet] carvediloL [Coreg] 25 mg PO BID 08/15/19 05/30/23 History lisinopriL [Zestril] 20 mg PO DAILY 10/04/19 05/30/23 History Albuterol Sulfate [Ventolin HFA] 2 puff INHALATION RT-Q4H PRN 05/30/23 05/30/23 History Citalopram Hydrobromide [CeleXA] 20 mg PO DAILY 05/30/23 05/30/23 History Doxycycline Hyclate 100 mg PO Q12H 05/30/23 05/30/23 History predniSONE 50 mg PO DAILY 05/30/23 05/30/23 History Allergies Allergy/AdvReac Type Severity Reaction Status Date / Time No Known Allergies Allergy Verified 05/30/23 22:47 Physical Exam Vitals: Vital Signs Temp Pulse Resp BP Pulse Ox 05/31/23 08:41 99.4 F 72 20 107/69 96 05/31/23 05:31 85 18 105/70 95 05/31/23 02:25 85 18 103/78 96 05/30/23 22:10 80 18 116/82 96 05/30/23 18:38 98 F 90 16 111/76 98 Intake and Output 05/30/23 05/31/23 05/31/23 22:59 06:59 14:59 Other: Weight 63.503 kg General appearance: The patient is alert, oriented, appears in no acute distress. HET: Head is normocephalic and atraumatic. Conjunctiva pink. Sclera anicteric. Neck: Supple without lymphadenopathy. Trachea midline. Heart: Regular. Lungs: Equal expansion, normal respiratory effort. Abdomen: Soft, nontender, nondistended with bowel sounds. No guarding or rigidity. Skin: No rashes. No jaundice. Extremities: Normal skin color and turgor. No pedal edema. Neurological: No focal deficits. Alert and oriented x3. Results CBC & Chem 7: 05/30/23 20:07 05/31/23 09:29 Labs: Abnormal Lab Results - Last 24 Hours (Table) 05/30/23 05/30/23 05/30/23 Range/Units 20:07 20:07 20:07 WBC 11.2 H (3.8-10.6) k/uL RBC 3.64 L (4.30-5.90) m/uL Hgb 11.5 L (13.0-17.5) gm/dL Hct 34.1 L (39.0-53.0) % Neutrophils # 9.7 H (1.3-7.7) k/uL Lymphocytes # 0.9 L (1.0-4.8) k/uL APTT 21.7 L (22.0-30.0) sec Sodium 135 L (137-145) mmol/L Potassium 5.4 H (3.5-5.1) mmol/L Chloride (98-107) mmol/L BUN 53 H (9-20) mg/dL Glucose 111 H (74-99) mg/dL Calcium (8.4-10.2) mg/dL Magnesium (1.6-2.3) mg/dL AST 16 L (17-59) U/L Alkaline Phosphatase (38-126) U/L Total Protein 6.0 L (6.3-8.2) g/dL Albumin 3.3 L (3.5-5.0) g/dL 01/31/24 Range/Units 09:29 WBC (3.8-10.6) k/uL RBC (4.30-5.90) m/uL Hgb (13.0-17.5) gm/dL Hct (39.0-53.0) % Neutrophils # (1.3-7.7) k/uL Lymphocytes # (1.0-4.8) k/uL APTT (22.0-30.0) sec Sodium 134 L (137-145) mmol/L Potassium (3.5-5.1) mmol/L Chloride 108 H (98-107) mmol/L BUN 51 H (9-20) mg/dL Glucose (74-99) mg/dL Calcium 7.3 L (8.4-10.2) mg/dL Magnesium 1.5 L (1.6-2.3) mg/dL AST 14 L (17-59) U/L Alkaline Phosphatase 35 L (38-126) U/L Total Protein 4.0 L (6.3-8.2) g/dL Albumin 2.0 L (3.5-5.0) g/dL Comments: CT angiogram thoracic/abdomen pelvis aorta reports findings most consistent with acute GI bleed with in the proximal duodenum. Ascending thoracic aorta aneurysm measuring up to 4.5 cm. Additional infrarenal abdominal aortic aneurysm measuring up to 3.6 cm. Moderate COPD changes. Few scattered reticu lar and groundglass opacities within the bilateral lower lobes suspicious for an infectious/inflammatory process. Additional 5 mm nodule along the right minor fissure which likely represents an fissural lymph node. According to Fleischner criteria, and a low risk patient no follow-up is recommended. In high risk patient is an optional CT chest in 12 months. Circumferential wall thickening of the under distended stomach which may represent an infectious/inflammatory process versus under distention. Consider direct visualization. Colonic diverticulosis. Assessment and Plan (1) GI bleed Narrative/Plan: 73-year-old coming in for reports of bright red blood turning darker and then black this morning. He has had at least 6 episodes. No history of previous GI bleed, no anticoagulation no regular NSAID use other than 81 mg low-dose as pirin. No associated abdominal pain CT angiogram suspicious for duodenal bleed. Recent colonoscopy done with Dr. Juarez on 05/06/2023 which she states was normal. Patient is mildly anemic, with elevated BUN which can be seen with an upper GI bleed. Recommend upper endoscopy today. Current Visit: Yes Status: Acute Code(s): K92.2 - GASTROINTESTINAL HEMORRHAGE, UNSPECIFIED SNOMED Code(s): 16071772 Plan: 1. Continue symptomatic and supportive care 2. Keep n.p.o. 3. Avoid NSAIDs and anticoagulation 4. Start Protonix 40 mg IV twice daily 5. Stat type and screen ordered 6. Stat CBC, transfuse for hemoglobin less than 7 7. Plan for EGD today, procedure discussed with patient including risks and benefits. Patient is willing to proceed. Thank you for this consultation, we will continue to follow. Dr. Fanny Valadez I agree with the dictator's note, documented as a scribe by Whitney Burns.
--- NOTE | 2023-05-31 13:15 | P.GSCN ---
History of Present Illness Consult date: 05/31/23 History of present illness: CHIEF COMPLAINT: Black stools HISTORY OF PRESENT ILLNESS: This is a 73-year-old male who presented the hospital with complaints of black stools. Patient reports symptoms started yesterday. He had 4 melanotic stools yesterday with some underlying pink-tinged blood. As well as 2 black stools this morning in the ER. Patient does report having pain in the right side of the bellybutton. He denies being on any blood thinners. He did take Motrin a couple of doses just 1 day. Otherwise he does not take NSAIDs regularly. Patient reports his last colonoscopy was May [address] Juarez and revealed colon polyps. Patient does have a history of diverticulosis. He also has a history of smoking. Hemoglobin on admission is 11.5. Patient denies ever having an EGD completed. CTA of the thorax and abdomen reports findings most consistent with acute GI bleed within the proximal duodenum. Circumferential wall thickening of the under distended stomach may represent an infectious/inflammatory process. Patient seen by GI service and is scheduled for EGD today. Patient is on IV Protonix. Patient denies any prior history of GI bleed. PAST MEDICAL HISTORY: Hypertension, diverticulosis PAST SURGICAL HISTORY: See below MEDICATIONS: See below ALLERGIES: See below SOCIAL HISTORY: No illicit drug use. REVIEW OF SYSTEMS: CONSTITUTIONAL: Denies fever or chills. HEENT: Denies blurred vision, vision changes, or eye pain. Denies hemoptysis CARDIOVASCULAR: Denies chest pain or pressure. RESPIRATORY: No shortness of breath. GASTROINTESTINAL: See HPI for pertinent findings HEMATOLOGIC: Denies bleeding disorders. GENITOURINARY: Denies any blood in urine or increased urinary frequency. SKIN: Denies pruitis. Denies rash. PHYSICAL EXAM: VITAL SIGNS: Reviewed GENERAL: Well-developed in no acute distress. HEENT: No sclera icterus. Extraocular movements grossly intact. Moist buccal mucosa. Head is atraumatic, normocephalic. No nasal drainage. ABDOMEN: Soft. Nondistended. Mild discomfort to the right of the umbilicus with palpation NEUROLOGIC: Alert and oriented. Cranial nerves II through XII grossly intact. LABORATORY DATA: WBC is 11.2 Hgb 11.5 platelets 276 INR 1.0 Sodium is 134 potassium is 4.2 creatinine 0.72 Lactic acid 1.6 Magnesium 1.5 IMAGING: CTA of the thorax and abdomen reports findings most consistent with acute GI bleed within the proximal duodenum. Ascending thoracic aortic aneurysm measuring 4.5 cm infrarenal abdominal aortic aneurysm measuring 3.6 cm. Moderate COPD changes. Few scattered reticular and groundglass opacities within the bilateral lower lobes suspicious for infectious/inflammatory process. A 5 mm nodule in the right minor fissure. Circumferential wall thickening of the underdistended stomach which may represent infectious/inflammatory process versus underdistention. Colonic diverticulosis. ASSESSMENT: 1. Acute GI bleed with melanotic stools 2. CT scan evidence of acute GI bleed within the proximal duodenum 3. Hypomagnesemia PLAN: -Patient scheduled today for EGD with GI service -Increase Protonix to IV twice a day -Continue IV fluids -Replace magnesium -Continue to monitor for any signs or symptoms of bleeding -Surgical service will remain on standby Thank you for this consultation Physician Etiquette Teacher note has been reviewed by physician. Signing provider agrees with the documented findings, assessment, and plan of care. I have personally seen and examined the patient, reviewed the DEALER ACCOUNTS INVESTIGATOR /PAs history, exam and MDM and agree with the assessment and plan as written. Based on total visit time, I have performed more than 50% of the visit. As above: Patient with actively bleeding ulcer. Doing better currently. No pain currently. Follow hemoglobin. Continue liquid diet. Will follow. Past Medical History Past Medical History: Hypertension Additional Past Medical History / Comment(s): INCISIONAL HERNIA, TREMORS, intestional blockage History of Any Multi-Drug Resistant Organisms: None Reported Past Surgical History: Joint Replacement Additional Past Surgical History / Comment(s): RIGHT KNEE REPLACED. RIGHT INGUINAL AND VENTRAL HERNIA REPAIR. 4 TOTAL, intestional blockage repair Past Anesthesia/Blood Transfusion Reactions: Previous Problems w/ Anesthesia Additional Past Anesthesia/Blood Transfusion Reaction / Comm: PAST HX OF TROUBLE WAKING UP, ALSO STATES TALKED BELLIGERENT WHEN WAKING UP Past Psychological History: No Psychological Hx Reported Past Alcohol Use History: None Reported Past Drug Use History: None Reported - Past Family History Father Family Medical History: CVA/TIA Daughter(s) Family Medical History: Cancer Additional Family Medical History / Comment(s): brain cancer Brother(s) Family Medical History: Cancer Additional Family Medical History / Comment(s): prostate cancer Medications and Allergies Home Medications Medication Instructions Recorded Confirmed Type Aspirin [Adult Low Dose Aspirin EC] 81 mg PO DAILY 02/10/16 05/30/23 History Spironolactone [Aldactone] 25 mg PO DAILY 02/10/16 05/30/23 History Atorvastatin [Lipitor] 20 mg PO DAILY 08/15/19 05/30/23 History Mv-Min/Folic/K1/Lycopen/Lutein 1 tab PO DAILY 08/15/19 05/30/23 History [Centrum Silver Men Tablet] carvediloL [Coreg] 25 mg PO BID 08/15/19 05/30/23 History lisinopriL [Zestril] 20 mg PO DAILY 10/04/19 05/30/23 History Albuterol Sulfate [Ventolin HFA] 2 puff INHALATION RT-Q4H PRN 05/30/23 05/30/23 History Citalopram Hydrobromide [CeleXA] 20 mg PO DAILY 05/30/23 05/30/23 History Doxycycline Hyclate 100 mg PO Q12H 05/30/23 05/30/23 History predniSONE 50 mg PO DAILY 05/30/23 05/30/23 History Allergies Allergy/AdvReac Type Severity Reaction Status Date / Time No Known Allergies Allergy Verified 05/30/23 22:47 Surgical - Exam Vital Signs Temp Pulse Resp BP Pulse Ox 98 F 90 16 111/76 98 05/30/23 18:38 05/30/23 18:38 05/30/23 18:38 05/30/23 18:38 05/30/23 18:38 Results - Labs 05/30/23 20:07 05/31/23 09:29 Abnormal Lab Results - Last 24 Hours (Table) 05/30/23 05/30/23 05/30/23 Range/Units 20:07 20:07 20:07 WBC 11.2 H (3.8-10.6) k/uL RBC 3.64 L (4.30-5.90) m/uL Hgb 11.5 L (13.0-17.5) gm/dL Hct 34.1 L (39.0-53.0) % Neutrophils # 9.7 H (1.3-7.7) k/uL Lymphocytes # 0.9 L (1.0-4.8) k/uL APTT 21.7 L (22.0-30.0) sec Sodium 135 L (137-145) mmol/L Potassium 5.4 H (3.5-5.1) mmol/L Chloride (98-107) mmol/L BUN 53 H (9-20) mg/dL Glucose 111 H (74-99) mg/dL Calcium (8.4-10.2) mg/dL Magnesium (1.6-2.3) mg/dL AST 16 L (17-59) U/L Alkaline Phosphatase (38-126) U/L Total Protein 6.0 L (6.3-8.2) g/dL Albumin 3.3 L (3.5-5.0) g/dL 05/31/23 Range/Units 09:29 WBC (3.8-10.6) k/uL RBC (4.30-5.90) m/uL Hgb (13.0-17.5) gm/dL Hct (39.0-53.0) % Neutrophils # (1.3-7.7) k/uL Lymphocytes # (1.0-4.8) k/uL APTT (22.0-30.0) sec Sodium 134 L (137-145) mmol/L Potassium (3.5-5.1) mmol/L Chloride 108 H (98-107) mmol/L BUN 51 H (9-20) mg/dL Glucose (74-99) mg/dL Calcium 7.3 L (8.4-10.2) mg/dL Magnesium 1.5 L (1.6-2.3) mg/dL AST 14 L (17-59) U/L Alkaline Phosphatase 35 L (38-126) U/L Total Protein 4.0 L (6.3-8.2) g/dL Albumin 2.0 L (3.5-5.0) g/dL Diabetes panel 05/30/23 05/31/23 Range/Units 20:07 09:29 Sodium 135 L 134 L (137-145) mmol/L Potassium 5.4 H 4.2 (3.5-5.1) mmol/L Chloride 105 108 H (98-107) mmol/L Carbon Dioxide 22 23 (22-30) mmol/L BUN 53 H 51 H (9-20) mg/dL Creatinine 0.80 0.72 (0.66-1.25) mg/dL Glucose 111 H 91 (74-99) mg/dL Calcium 8.5 7.3 L (8.4-10.2) mg/dL AST 16 L 14 L (17-59) U/L ALT 16 12 (4-49) U/L Alkaline Phosphatase 47 35 L (38-126) U/L Total Protein 6.0 L 4.0 L (6.3-8.2) g/dL Albumin 3.3 L 2.0 L (3.5-5.0) g/dL Calcium panel 05/30/23 05/31/23 Range/Units 20:07 09:29 Calcium 8.5 7.3 L (8.4-10.2) mg/dL Phosphorus 3.0 (2.5-4.5) mg/dL Albumin 3.3 L 2.0 L (3.5-5.0) g/dL Pituitary panel 05/30/23 05/31/23 Range/Units 20:07 09:29 Sodium 135 L 134 L (137-145) mmol/L Potassium 5.4 H 4.2 (3.5-5.1) mmol/L Chloride 105 108 H (98-107) mmol/L Carbon Dioxide 22 23 (22-30) mmol/L BUN 53 H 51 H (9-20) mg/dL Creatinine 0.80 0.72 (0.66-1.25) mg/dL Glucose 111 H 91 (74-99) mg/dL Calcium 8.5 7.3 L (8.4-10.2) mg/dL Adrenal panel 05/30/23 05/31/23 Range/Units 20:07 09:29 Sodium 135 L 134 L (137-145) mmol/L Potassium 5.4 H 4.2 (3.5-5.1) mmol/L Chloride 105 108 H (98-107) mmol/L Carbon Dioxide 22 23 (22-30) mmol/L BUN 53 H 51 H (9-20) mg/dL Creatinine 0.80 0.72 (0.66-1.25) mg/dL Glucose 111 H 91 (74-99) mg/dL Calcium 8.5 7.3 L (8.4-10.2) mg/dL Total Bilirubin 0.2 0.2 (0.2-1.3) mg/dL AST 16 L 14 L (17-59) U/L ALT 16 12 (4-49) U/L Alkaline Phosphatase 47 35 L (38-126) U/L Total Protein 6.0 L 4.0 L (6.3-8.2) g/dL Albumin 3.3 L 2.0 L (3.5-5.0) g/dL
[2023-05-31] MEDS ORDERED: LIDOCAINE 1% INJ 10MG/ML (20 ML MDV) ONE (13:28)
[2023-05-31] MEDS ORDERED: PROPOFOL 10 MG/ML 20 ML VIAL IV ONE (13:28)
[2023-05-31] MEDS: IV FLUID CONTINUATION 1,000 ML IV ONE (13:41)
[2023-05-31] MEDS: EPINEPHrine 10 ML SYRINGE (0.1 MG/ML) MISCELLANE ONE (13:43)
--- NOTE | 2023-05-31 13:51 | P.PCN ---
Date of Procedure: 05/31/23 Procedure(s) Performed: BRIEF HISTORY: Patient is a 73-year-old, pleasant, white male scheduled for an upper endoscopy as a part of evaluation of acute GI bleed. He had 4 episodes of black tarry stools since yesterday afternoon. Hemoglobin is 11.5 g/dL.. PROCEDURE PERFORMED: Esophagogastroduodenoscopy with injection epinephrine and Endo Clip placement and biopsy. PREOPERATIVE DIAGNOSIS: Melena of 2 days' duration. IV sedation per anesthesia. PROCEDURE: After informed consent was obtained, the patient was brought into the endoscopy unit. IV sedation was administered by Anesthesia under continuous monitoring. Initially the Olympus GIF-140 video endoscope was inserted into the mouth. Esophagus intubated without any difficulty. It was gradually advanced into the stomach and duodenum and carefully examined. The bulb and the second part of the duodenum appeared normal.at some fresh blood noted. Uponcareful examination and Irrigation there was a 5 mm ulceration along the duodenal sweep with a small visible vessel noted. Initially attempted to place a clip but there was active bleeding identified. Hence epinephrine was injected, 1 in 10,000 and total of 5 mL was injected with good hemostasis. Following this an Endo Clip was placed with good hemostasis. The scope at this time was withdrawn to the stomach, adequately insufflated with air, and upon careful examination, mucosa of the antrum, body, cardia and the fundus appeared normal. The scope was then withdrawn into the esophagus.small hiatal hernia noted. The GE junction was located at 39 cm from the incisors. The esophagus appeared normal. There were no erosions or ulcerations seen and the patient tolerated the procedure well. IMPRESSION: 1. Actively bleeding small duodenal ulcer along the duodenal sweep with a visible vessel status post injection epinephrine followed by Endo Clip placement with good hemostasis. 2. Small hiatal hernia. RECOMMENDATIONS: The findings of this examination were discussed with the patient as well as his family. He will be continued on Protonix 40 mg twice daily. Monitor CBC every 12 hours. Start him on clear liquid diet today..
[2023-05-31] MEDS: MAGNESIUM SULFATE-D5W PMX 1 GM in DEXTROSE/WATER 1 100ML.BAG IVPB SCH (16:56)
[2023-06-01 09:05] LABS: Basophils % (A) 0 %; Eosinophils # (A) 0.1 k/uL (0-0.7); Eosinophils % (A) 1 %; Lymphocytes # (A) 2.7 k/uL (1.0-4.8); Lymphocytes % (A) 28 %; MCH 31.1 pg (25.0-35.0); MCHC 33.8 g/dL (31.0-37.0); Mean Platelet Volume 7.5; Monocytes # (A) 0.4 k/uL (0-1.0); Monocytes % (A) 4 %; Neutrophils # (A) 6.5 k/uL (1.3-7.7); Neutrophils % (A) 67 %; Platelet Count 187 k/uL (150-450); WBC 9.8 k/uL (3.8-10.6)
[2023-06-01 09:08] LABS: HCT 19.3 % (39.0-53.0); HGB 6.5 gm/dL (13.0-17.5)
[2023-06-01 09:15] LABS: African American GFR (CKD) >90 (>60 ml/min/1.73 sqM); Anion Gap -1 mmol/L; Blood Urea Nitrogen 30 mg/dL (9-20); Calcium 7.7 mg/dL (8.4-10.2); Carbon Dioxide 26 mmol/L (22-30); Chloride 109 mmol/L (98-107); Glucose 100 mg/dL (74-99); Non-African American GFR(CKD) >90 (>60 ml/min/1.73 sqM); Potassium 4.5 mmol/L (3.5-5.1); Sodium 134 mmol/L (137-145)
--- NOTE | 2023-06-01 12:26 | P.PN ---
Subjective Progress Note Date: 06/01/23 CHIEF COMPLAINT: GI bleed HISTORY OF PRESENT ILLNESS: Patient status post EGD with Dr. Valadez. Results sh owed actively bleeding small duodenal ulcer along the duodenal sweep with a visible vessel status post injection of epinephrine and Endo Clip. Patient does have some right sided abdominal discomfort. He does have some minimal black noted on the tissue paper after he wipes after passing flatus. He has had no further bowel movements. Hemoglobin has dropped from 11.5-6.5. He is getting 1 unit of blood. Afebrile. He is not tachycardic. BP 92/67 PHYSICAL EXAM: VITAL SIGNS: Reviewed. GENERAL: Well-developed in no acute distress. ABDOMEN: Soft. Nondistended. Mild tenderness to the right of the umbilicus NEUROLOGIC: Alert and oriented. Cranial nerves II through XII grossly intact. ASSESSMENT: 1. Acute GI bleed with acute blood loss anemia secondary to active bleeding duodenal ulcer status post epinephrine and Endo Clip by GI service PLAN: -1 unit of packed red blood cells ordered. Repeat CBC after blood transfusion -Repeat CBC in a.m. -Continue IV Protonix twice daily -Continue IV fluids -Continue to monitor Physician Nutrition Consultant note has been reviewed by physician. Signing provider agrees with the documented findings, assessment, and plan of care. Objective - Vital Signs Vital signs: Vital Signs Temp 98.1 F 06/01/23 11:39 Pulse 66 06/01/23 11:39 Resp 15 06/01/23 11:39 BP 92/54 06/01/23 11:39 Pulse Ox 98 06/01/23 11:15 FiO2 Intake & Output 05/31/23 06/01/23 06/01/23 18:59 06:59 18:59 Intake Total 210 600 240 Balance 210 600 240 Weight 63.503 kg Intake: IV 210 Invasive Line 1 10 Intake, IV Titration 600 Amount Sodium Chloride 0.9% 1, 600 000 ml @ 100 mls/hr IV . Q10H JAYNA Rx#:[id number] Oral 240 Blood Product 0 Unit 0 Other: Voiding Method Toilet Toilet # Voids 1 # Bowel Movements 2 - Labs CBC & Chem 7: 06/01/23 08:32 06/01/23 08:32 Labs: Abnormal Lab Results - Last 24 Hours (Table) 05/31/23 06/01/23 06/01/23 Range/Units 11:22 08:32 08:32 RBC 2.10 L (4.30-5.90) m/uL Hgb 6.5 L* D (13.0-17.5) gm/dL Hct 19.3 L* (39.0-53.0) % Sodium 134 L (137-145) mmol/L Chloride 109 H (98-107) mmol/L BUN 30 H (9-20) mg/dL Glucose 100 H (74-99) mg/dL Calcium 7.7 L (8.4-10.2) mg/dL Crossmatch See Detail
--- NOTE | 2023-06-01 15:58 | P.PN ---
Subjective Progress Note Date: 06/01/23 Principal diagnosis: GI bleed This is a pleasant 73-year-old white male who presented to the emergency department yesterday evening with concerns of rectal bleeding. Past medical history includes hypertension, hernia repair and small bowel obstruction. He states he started having bright red or dark red bleeding yesterday afternoon nonpainful bloody bowel movements. States he had about 4 they have darkened since then and this morning he had black stool. Again denies any abdominal pain, nausea or vomiting. He denies any anticoagulation, he does take daily 81 mg aspirin, no NSAID use. No history of GI bleed, no peptic ulcer or acid reflux. He had a recent screening colonoscopy with [facility] 05/06/2023 which she states was normal. He did have a CTA thoracic abdomen pelvis aorta completed which reported findings most consistent with acute GI bleed within the proximal duodenum. Circumferential wall thickening of the under distended stomach hyperdense material on the arterial phase identified within the proximal duodenum. Not present on the noncontrast phase. WBC 11.2 hemoglobin 11.5 hematocrit 34 platelet count 276,000 INR 1.0 sodium 135 potassium 5.4 BUN 53 creatinine 0.8 total bilirubin 0.2 AST 16 ALT 16 alkaline phosphatase 47 06/01/2023 Patient seen and examined today as a follow-up. He denies any abdominal pain, nausea or vomiting. States that he does have a little bit of gas and has been passing some gas that has been a little wet and noticed that it has been dark. He has not had any formal bowel movement. This morning's hemoglobin was 6.5, 1 unit of blood has been ordered.. Objective - Vital Signs Vital signs: Vital Signs Temp 98.6 F 06/01/23 07:48 Pulse 54 L 06/01/23 08:32 Resp 18 06/01/23 08:32 BP 93/58 06/01/23 07:48 Pulse Ox 98 06/01/23 07:48 FiO2 Intake & Output 05/31/23 06/01/23 06/01/23 18:59 06:59 18:59 Intake Total 210 600 240 Balance 210 600 240 Weight 63.503 kg Intake: IV 210 Invasive Line 1 10 Intake, IV Titration 600 Amount Sodium Chloride 0.9% 1, 600 000 ml @ 100 mls/hr IV . Q10H [facility] Rx#:[id number] Oral 240 Other: Voiding Method Toilet Toilet # Voids 1 # Bowel Movements 2 - Exam General appearance: The patient is alert, oriented, appears in no acute distress. HET: Head is normocephalic and atraumatic. Conjunctiva pink. Sclera anicteric. Neck: Supple without lymphadenopathy. Abdomen: Soft, nontender, nondistended with bowel sounds. No guarding or rigidity. Extremities: Normal skin color and turgor. No pedal edema Skin: No rashes, no jaundice Neurological: No focal deficits. Alert and oriented. - Labs CBC & Chem 7: 06/01/23 08:32 06/01/23 08:32 Labs: Abnormal Lab Results - Last 24 Hours (Table) 05/31/23 06/01/23 06/01/23 Range/Units 09:29 08:32 08:32 RBC 2.10 L (4.30-5.90) m/uL Hgb 6.5 L* D (13.0-17.5) gm/dL Hct 19.3 L* (39.0-53.0) % Sodium 134 L 134 L (137-145) mmol/L Chloride 108 H 109 H (98-107) mmol/L BUN 51 H 30 H (9-20) mg/dL Glucose 100 H (74-99) mg/dL Calcium 7.3 L 7.7 L (8.4-10.2) mg/dL Magnesium 1.5 L (1.6-2.3) mg/dL AST 14 L (17-59) U/L Alkaline Phosphatase 35 L (38-126) U/L Total Protein 4.0 L (6.3-8.2) g/dL Albumin 2.0 L (3.5-5.0) g/dL Assessment and Plan (1) GI bleed Narrative/Plan: 73-year-old coming in for reports of bright red blood turning darker and then black this morning. He has had at least 6 episodes. No history of previous GI bleed, no anticoagulation no regular NSAID use other than 81 mg low-dose a spirin. No associated abdominal pain CT angiogram suspicious for duodenal bleed. Recent colonoscopy done with Dr. Juarez on 05/06/2023 which she states was normal. Patient is mildly anemic, with elevated BUN which can be seen with an upper GI bleed. Recommend upper endoscopy today. 06/01/2023 Patient is status post EGD with findings of actively bleeding small duodenal ulcer along the duodenal sweep with a visible vessel status post injection of epinephrine followed by Endo Clip placement with good hemostasis. Small hiatal hernia. Patient was started on Protonix twice daily with a CBC ordered to every 12 hours. Current Visit: Yes Status: Acute Code(s): K92.2 - GASTROINTESTINAL HEMORRHAGE, UNSPECIFIED SNOMED Code(s): 78226855 Plan: 1. Continue symptomatic and supportive care 2. Clear liquid diet, may have full liquid diet for dinner 3. Avoid NSAIDs and anticoagulation 4. Start Protonix 40 mg IV twice daily 5. Agree with 1 unit PRBC transfusion. Repeat CBC 1 hour posttransfusion 6. Daily CBC, transfuse for hemoglobin less than 7. Thank you for this consultation, we will continue to follow. Dr. Fanny Valadez I agree with the dictator's note, documented as a scribe by Whitney Burns.
[2023-06-01 16:12] LABS: HCT 20.6 % (39.0-53.0); HGB 7.2 gm/dL (13.0-17.5); MCH 31.4 pg (25.0-35.0); MCV 89.7 fL (80.0-100.0); Mean Platelet Volume 8.2; Platelet Count 155 k/uL (150-450); RBC 2.29 m/uL (4.30-5.90); WBC 8.6 k/uL (3.8-10.6)
[2023-06-01] MEDS: TEMAZEPAM 7.5 MG CAP PO PRN (20:08)
[2023-06-01] MEDS: AMOXIC-POT CLAV 500-125 MG 1 EACH TAB PO SCH (20:08)
--- NOTE | 2023-06-01 22:55 | P.PN ---
Subjective This is a pleasant 73 years old male with past medical history of hypertension. He follow-up with billboard mechanic Dr. Juarez for his high blood pressure he was placed on aspirin 81 mg daily. His PCP is Dr. Hurtado. Patient presents because of episodes of blood in his stool that fills about one cup that happened yesterday afternoon and this morning. Patient denies abdominal pain or vomiting or bleeding from anywhere else. He states that he has chronic diarrhea for months once a day. He denies urinary symptoms. No chest pain. No headache dizziness weakness or numbness. Patient currently not a smoker but he has history of COPD. 3 days ago he went to his clinic offices and he was treated with prednisone, antibiotic and he took Motrin for generalized body ache. He is feeling better, breathing and coughing are improving. He states he still left 2 days of treatment at home. He denies alcohol or illicit drugs. Hemodynamically stable, blood pressure on the low normal side systolic around 100 110. He is currently on normal saline 75 mL/h going to give him another blood loss of 500 mL of normal saline. Aspirin was placed on hold as well as Motrin and steroids and is currently on IV Protonix once daily. Hemoglobin is 11.5, WBC is 11.2. Potassium 5.4 and creatinine within the reference range. INR, BMP and liver enzymes were unremarkable Patient states that recently he had colonoscopy with Dr. Mckay which was unremarkable as per patient 06/01/2023 Patient is status post EGD showed the duodenal ulcer 5 mm with bleeding vessel, status post epinephrine injection and clamping and bleeding was controlled. Patient was placed on IV Protonix twice daily Hemoglobin dropped to 6.5. 1 units of blood is given. Hemoglobin improved 7.2. We going to monitor hemoglobin closely tonight and tomorrow morning I discussed with the day time shift at telecom analyst as well Other than that patient denies abdominal pain or chest pain or dyspnea. No bowel movement today. No vomiting. He ate little bit. His a liquid diet. His blood pressure is low normal, lactic acid is normal at 1.0. Patient also on normal saline 100 mL per hour CAT scan showed bilateral lower lobe opacities suspicious for infectious/inflammatory process. Patient states that he has been on antibiotics just prior to hospitalization for bronchitis and he is left with 2 days of treatment. Patient cannot remember which antibiotic. We ordered Augmentin for him. Also will check potential stone and tomorrow, Home dose of aspirin 81 mg remains on hold. Patient underwent Review of systems CONSTITUTIONAL: No fever, no malaise, no fatigue. HEENT: No recent visual problems or hearing problems. Denied any sore throat. CARDIOVASCULAR: No orthopnea, PND, no palpitations, no syncope. PULMONARY: No shortness of breath, no cough, no hemoptysis. NEUROLOGICAL: No headaches, no weakness, no numbness. Active Medications Generic Name Dose Route Start Last Admin Trade Name Freq PRN Reason Stop Dose Admin Acetaminophen 325 mg 05/31/23 08:41 Acetaminophen Tab 325 Mg Tab PO Q6HR PRN Fever and/ or Pain Amoxicillin/Clavulanate Potassium 1 each 06/01/23 21:00 06/01/23 20:08 Amoxic-Pot Clav 500-125 Mg 1 Each Tab PO 06/04/23 21:01 1 each BID JAYNA Administration Protocol Ferrous Sulfate 325 mg 06/02/23 07:30 Ferrous Sulfate 325 Mg Tab PO BID-W/MEALS [facility] Sodium Chloride 1,000 mls @ 100 mls/hr 05/30/23 22:30 06/01/23 19:17 Saline 0.9% IV Not Given .Q10H [facility] Miscellaneous Information 1 each 05/31/23 08:12 Rx Info: Iv Contrast Was Given 1 Each Misc MISCELLANE 06/02/23 08:12 DAILY PRN Per Protocol Morphine Sulfate 4 mg 05/30/23 22:21 Morphine Sulfate 4 Mg/Ml Syringe IV Q4HR PRN Severe Pain (Scale 7 to 10) Naloxone HCl 0.2 mg 05/30/23 22:21 Naloxone 0.4 Mg/Ml 1 Ml Vial IV Q2M PRN Opioid Reversal Ondansetron HCl 4 mg 05/30/23 22:21 Ondansetron 4 Mg/2 Ml Vial IVP Q8HR PRN Nausea And Vomiting Pantoprazole Sodium 40 mg 05/31/23 21:00 06/01/23 20:08 Pantoprazole 40 Mg/10 Ml Vial IV 40 mg BID JAYNA Administration Temazepam 7.5 mg 06/01/23 16:15 06/01/23 20:08 Temazepam 7.5 Mg Cap PO 7.5 mg HS PRN Administration Insomnia Objective - Vital Signs Vital signs: Vital Signs Temp 98.1 F 06/01/23 14:47 Pulse 68 06/01/23 14:47 Resp 16 06/01/23 14:47 BP 90/55 06/01/23 14:47 Pulse Ox 97 06/01/23 12:09 FiO2 Intake & Output 05/31/23 06/01/23 06/01/23 18:59 06:59 18:59 Intake Total 210 600 790 Balance 210 600 790 Weight 63.503 kg Intake: IV 210 Invasive Line 1 10 Intake, IV Titration 600 Amount Sodium Chloride 0.9% 1, 600 000 ml @ 100 mls/hr IV . Q10H [facility] Rx#:[id number] Oral 480 Blood Product 310 Rc As-1 Unit 310 [id number] Other: Voiding Method Toilet Toilet Toilet # Voids 1 2 # Bowel Movements 2 0 - Exam GENERAL: The patient is alert and oriented x3, not in any acute distress. Well developed, well nourished. HEENT: Pupils are round and equally reacting to light. EOMI. No scleral icterus. No conjunctival pallor. Normocephalic, atraumatic. No pharyngeal erythema. No thyromegaly. CARDIOVASCULAR: S1 and S2 present. No murmurs, rubs, or gallops. PULMONARY: Chest is clear to auscultation, no wheezing , no crackles. ABDOMEN: Soft, nontender, nondistended, normoactive bowel sounds. No palpable organomegaly. MUSCULOSKELETAL: No joint swelling or deformity. EXTREMITIES: No cyanosis, clubbing, or pedal edema. NEUROLOGICAL: Gross neurological examination did not reveal any focal deficits. SKIN: No rashes. no petechiae. - Labs CBC & Chem 7: 06/01/23 15:57 06/01/23 08:32 Labs: Abnormal Lab Results - Last 24 Hours (Table) 05/31/23 06/01/23 06/01/23 Range/Units 11:22 08:32 08:32 RBC 2.10 L (4.30-5.90) m/uL Hgb 6.5 L* D (13.0-17.5) gm/dL Hct 19.3 L* (39.0-53.0) % Sodium 134 L (137-145) mmol/L Chloride 109 H (98-107) mmol/L BUN 30 H (9-20) mg/dL Glucose 100 H (74-99) mg/dL Calcium 7.7 L (8.4-10.2) mg/dL Crossmatch See Detail Assessment and Plan Assessment: Acute GI bleed, tenderness blood per rectum Acute blood loss anemia Hypertension Plan: Continue with IV fluid Hold aspirin and Motrin Continue with IV Protonix twice daily GI and surgery consult Start antibiotic Augmentin for a short oral course Monitor hemoglobin closely and transfuse for hemoglobin less than 7. Labs and medication were reviewed.. Continue same treatment. Continue with symptomatic treatment. Resume home medication. Monitor labs and vitals. DVT and GI prophylaxis. Further recommendations as per clinical course of the patient DVT prophylaxis: no Subcutaneous heparin GI Prophylaxis: Ppi
[2023-06-01 23:24] LABS: MCH 30.7 pg (25.0-35.0); MCHC 34.5 g/dL (31.0-37.0); MCV 88.9 fL (80.0-100.0); Mean Platelet Volume 7.5; Platelet Count 168 k/uL (150-450); RBC 2.24 m/uL (4.30-5.90); RDW 14.3 % (11.5-15.5); WBC 8.6 k/uL (3.8-10.6)
[2023-06-02 00:24] LABS: HCT 19.9 % (39.0-53.0); HGB 6.9 gm/dL (13.0-17.5)
[2023-06-02] MEDS: FERROUS SULFATE 325 MG TAB PO SCH (07:05)
--- NOTE | 2023-06-02 09:31 | P.PN ---
Subjective Progress Note Date: 06/02/23 Principal diagnosis: GI bleed This is a pleasant 73-year-old white male who presented to the emergency department yesterday evening with concerns of rectal bleeding. Past medical history includes hypertension, hernia repair and small bowel obstruction. He states he started having bright red or dark red bleeding yesterday afternoon nonpainful bloody bowel movements. States he had about 4 they have darkened since then and this morning he had black stool. Again denies any abdominal pain, nausea or vomiting. He denies any anticoagulation, he does take daily 81 mg aspirin, no NSAID use. No history of GI bleed, no peptic ulcer or acid reflux. He had a recent screening colonoscopy with [facility] 05/06/2023 which she states was normal. He did have a CTA thoracic abdomen pelvis aorta completed which reported findings most consistent with acute GI bleed within the proximal duodenum. Circumferential wall thickening of the under distended stomach hyperdense material on the arterial phase identified within the proximal duodenum. Not present on the noncontrast phase. WBC 11.2 hemoglobin 11.5 hematocrit 34 platelet count 276,000 INR 1.0 sodium 135 potassium 5.4 BUN 53 creatinine 0.8 total bilirubin 0.2 AST 16 ALT 16 alkaline phosphatase 47 06/01/2023 Patient seen and examined today as a follow-up. He denies any abdominal pain, nausea or vomiting. States that he does have a little bit of gas and has been passing some gas that has been a little wet and noticed that it has been dark. He has not had any formal bowel movement. This morning's hemoglobin was 6.5, 1 unit of blood has been ordered. 06/02/2023 Patient seen and examined today as a follow-up. He had a drop in his hemoglobin yesterday evening to 6.9 and is currently getting 1 unit of blood. He he continues to deny any abdominal pain, nausea or vomiting and no bleeding. Objective - Vital Signs Vital signs: Vital Signs Temp 98.5 F 06/02/23 05:22 Pulse 60 06/02/23 05:22 Resp 16 06/02/23 05:22 BP 91/55 06/02/23 05:22 Pulse Ox 98 06/02/23 05:22 FiO2 Intake & Output 06/01/23 06/02/23 06/02/23 18:59 06:59 18:59 Intake Total 790 120 Balance 790 120 Intake: Oral 480 120 Blood Product 310 0 Rc As-1 Unit 310 [id number] Rc As-1 Unit 0 [id number] Other: Voiding Method Toilet Toilet # Voids 2 1 # Bowel Movements 0 0 - Exam General appearance: The patient is alert, oriented, appears in no acute distress. HET: Head is normocephalic and atraumatic. Conjunctiva pink. Sclera anicteric. Neck: Supple without lymphadenopathy. Abdomen: Soft, nontender, nondistended with bowel sounds. No guarding or rigidity. Extremities: Normal skin color and turgor. No pedal edema Skin: No rashes, no jaundice Neurological: No focal deficits. Alert and oriented. - Labs CBC & Chem 7: 06/01/23 23:09 06/01/23 08:32 Labs: Abnormal Lab Results - Last 24 Hours (Table) 05/31/23 06/01/23 06/01/23 Range/Units 11:22 08:32 08:32 RBC 2.10 L (4.30-5.90) m/uL Hgb 6.5 L* D (13.0-17.5) gm/dL Hct 19.3 L* (39.0-53.0) % Sodium 134 L (137-145) mmol/L Chloride 109 H (98-107) mmol/L BUN 30 H (9-20) mg/dL Glucose 100 H (74-99) mg/dL Calcium 7.7 L (8.4-10.2) mg/dL Crossmatch See Detail 06/01/23 06/01/23 Range/Units 15:57 23:09 RBC 2.29 L 2.24 L (4.30-5.90) m/uL Hgb 7.2 L 6.9 L* (13.0-17.5) gm/dL Hct 20.6 L 19.9 L* (39.0-53.0) % Sodium (137-145) mmol/L Chloride (98-107) mmol/L BUN (9-20) mg/dL Glucose (74-99) mg/dL Calcium (8.4-10.2) mg/dL Crossmatch Assessment and Plan (1) GI bleed Narrative/Plan: 73-year-old coming in for reports of bright red blood turning darker and then black this morning. He has had at least 6 episodes. No history of previous GI bleed, no anticoagulation no regular NSAID use other than 81 mg low-dose asp irin. No associated abdominal pain CT angiogram suspicious for duodenal bleed. Recent colonoscopy done with Dr. Juarez on 05/06/2023 which she states was normal. Patient is mildly anemic, with elevated BUN which can be seen with an upper GI bleed. Recommend upper endoscopy today. 06/01/2023 Patient is status post EGD with findings of actively bleeding small duodenal ulcer along the duodenal sweep with a visible vessel status post injection of epinephrine followed by Endo Clip placement with good hemostasis. Small hiatal hernia. Patient was started on Protonix twice daily with a CBC ordered to every 12 hours. Current Visit: Yes Status: Acute Code(s): K92.2 - GASTROINTESTINAL HEMORRHAGE, UNSPECIFIED SNOMED Code(s): 57907852 Plan: 1. Continue symptomatic and supportive care 2. Any of the liquid diet since last year 3. Avoid NSAIDs and anticoagulation 4. Start Protonix 40 mg IV twice daily 5. Agree with 1 unit PRBC transfusion. Repeat CBC 1 hour posttransfusion 6. Daily CBC, transfuse for hemoglobin less than 7. Thank you for allowing us to participate in the care of the patient, the GI service will sign off, gastroenterology will not be available at the hospital this weekend and through next week. If further evaluation by gastroenterology is required the patient will need transfer as per the primary team's discretion. Dr. Fanny Valadez I agree with the dictator's note, documented as a scribe by Whitney Burns.
[2023-06-02 11:20] LABS: MCH 30.4 pg (25.0-35.0); MCHC 34.9 g/dL (31.0-37.0); MCV 87.3 fL (80.0-100.0); Mean Platelet Volume 7.9; Platelet Count 163 k/uL (150-450); RBC 2.64 m/uL (4.30-5.90); RDW 15.2 % (11.5-15.5); WBC 8.9 k/uL (3.8-10.6)
[2023-06-02 11:35] LABS: African American GFR (CKD) >90 (>60 ml/min/1.73 sqM); Anion Gap 5 mmol/L; Blood Urea Nitrogen 18 mg/dL (9-20); Calcium 7.8 mg/dL (8.4-10.2); Carbon Dioxide 23 mmol/L (22-30); Chloride 106 mmol/L (98-107); Glucose 99 mg/dL (74-99); Non-African American GFR(CKD) >90 (>60 ml/min/1.73 sqM); Potassium 4.1 mmol/L (3.5-5.1); Sodium 134 mmol/L (137-145)
--- NOTE | 2023-06-02 14:30 | P.PN ---
Subjective Progress Note Date: 06/02/23 CHIEF COMPLAINT: GI bleed HISTORY OF PRESENT ILLNESS: Patient status post EGD with Dr. Valadez. Results sh owed actively bleeding small duodenal ulcer along the duodenal sweep with a visible vessel status post injection of epinephrine and Endo Clip. Patient not complaining of any abdominal pain. He did receive a unit of blood yesterday for hemoglobin of 6.5 hemoglobin did go up to 7.2. Repeat hemoglobin this morning 6.9 and he is receiving unit of blood. Patient notes after he passes gas he has a small amount of black on the tissue paper. Vital stable. Hemoglobin 6.9 up to 8.0 after second unit of blood PHYSICAL EXAM: VITAL SIGNS: Reviewed. GENERAL: Well-developed in no acute distress. ABDOMEN: Soft. Nondistended. Mild tenderness to the right of the umbilicus NEUROLOGIC: Alert and oriented. Cranial nerves II through XII grossly intact. ASSESSMENT: 1. Acute GI bleed with acute blood loss anemia secondary to active bleeding duodenal ulcer status post epinephrine and Endo Clip by GI service PLAN: -Continue full liquids -Continue to monitor for any signs or symptoms of bleeding -Continue to monitor hemoglobin -Continue IV Protonix twice daily -Continue IV fluids Physician Conditioning Machine Operator note has been reviewed by physician. Signing provider agrees with the documented findings, assessment, and plan of care. I have personally seen and examined the patient, reviewed the FOREST SCIENTIST /PAs history, exam and MDM and agree with the assessment and plan as written. Based on total visit time, I have performed more than 50% of the visit. As above: Patient doing better today. Hemoglobin once again dropped somewhat. He is having solid melanotic stools. No active bleeding. Hemoglobin up to 8.0 after second unit of blood. Recheck CBC tomorrow. Continue antiacids. Possible discharge tomorrow. Objective - Vital Signs Vital signs: Vital Signs Temp 97.8 F 06/02/23 08:21 Pulse 63 06/02/23 12:03 Resp 16 06/02/23 12:03 BP 90/51 06/02/23 12:03 Pulse Ox 98 06/02/23 12:03 FiO2 Intake & Output 06/01/23 06/02/23 06/02/23 18:59 06:59 18:59 Intake Total 201 742 3876 Balance 691 329 4941 Intake: IV 20 Invasive Line 1 20 Oral 480 120 842 Blood Product 310 0 310 Rc As-1 Unit 310 [id number] Rc As-1 Unit 0 310 [id number] Other: Voiding Method Toilet Toilet Toilet # Voids 2 1 1 # Bowel Movements 0 0 1 - Labs CBC & Chem 7: 06/02/23 10:46 06/02/23 10:46 Labs: Abnormal Lab Results - Last 24 Hours (Table) 05/31/23 06/01/23 06/01/23 Range/Units 11:22 15:57 23:09 RBC 2.29 L 2.24 L (4.30-5.90) m/uL Hgb 7.2 L 6.9 L* (13.0-17.5) gm/dL Hct 20.6 L 19.9 L* (39.0-53.0) % Sodium (137-145) mmol/L Calcium (8.4-10.2) mg/dL Crossmatch See Detail 06/02/23 06/02/23 Range/Units 10:46 10:46 RBC 2.64 L (4.30-5.90) m/uL Hgb 8.0 L (13.0-17.5) gm/dL Hct 23.0 L (39.0-53.0) % Sodium 134 L (137-145) mmol/L Calcium 7.8 L (8.4-10.2) mg/dL Crossmatch
[2023-06-03 10:19] LABS: HCT 25.1 % (39.0-53.0); HGB 8.5 gm/dL (13.0-17.5); MCH 30.5 pg (25.0-35.0); MCHC 33.9 g/dL (31.0-37.0); MCV 89.9 fL (80.0-100.0); Mean Platelet Volume 7.3; Platelet Count 196 k/uL (150-450); RBC 2.79 m/uL (4.30-5.90); RDW 15.2 % (11.5-15.5); WBC 8.9 k/uL (3.8-10.6)
--- NOTE | 2023-06-03 15:21 | P.PN ---
Subjective Progress Note Date: 06/03/23 [place]. No N/V. No F/C. NO SOB or CP. Ambulatory and voiding. Admits to flatus, and small BM. He states that his BM was dark but no hematochezia. Tolerating diet. Objective - Vital Signs Vital signs: Vital Signs Temp 97.9 F 06/03/23 09:06 Pulse 80 06/03/23 13:22 Resp 16 06/03/23 12:04 BP 93/59 06/03/23 12:04 Pulse Ox 97 06/03/23 12:04 FiO2 Intake & Output 06/02/23 06/03/23 06/03/23 18:59 06:59 18:59 Intake Total 1652 20 243 Balance 1652 20 243 Intake: IV 20 20 Invasive Line 1 20 20 Oral 1322 243 Blood Product 310 Rc As-1 Unit 310 [id number] Other: Voiding Method Toilet Toilet Toilet # Voids 1 # Bowel Movements 1 1 - Labs CBC & Chem 7: 06/03/23 09:35 06/02/23 10:46 Labs: Abnormal Lab Results - Last 24 Hours (Table) 06/03/23 Range/Units 09:35 RBC 2.79 L (4.30-5.90) m/uL Hgb 8.5 L (13.0-17.5) gm/dL Hct 25.1 L (39.0-53.0) % Assessment and Plan Assessment: Patient is a 73 year old male who presents with melena secondary to duodenal ulcer seen on EGD Plan: -Diet as tolerated -PPI therapy -IVF hydration -PRN pain and nausea control -Trend Hb -Care per primary Roman Walton MD General Surgery
--- NOTE | 2023-06-03 18:24 | P.PN ---
Subjective Progress Note Date: 06/02/23 73 years old male with past medical history of hypertension. He follow-up with iron installer Dr. Juarez for his high blood pressure he was placed on aspirin 81 mg daily. His PCP is Dr. Hurtado. Patient presents because of episodes of blood in his stool that fills about one cup that happened yesterday afternoon and this morning. Patient denies abdominal pain or vomiting or bleeding from anywhere else. He states that he has chronic diarrhea for months once a day. He denies urinary symptoms. No chest pain. No headache dizziness weakness or numbness. Patient currently not a smoker but he has history of COPD. 3 days ago he went to his clinic offices and he was treated with prednisone, antibiotic and he took Motrin for generalized body ache. He is feeling better, breathing and coughing are improving. He states he still left 2 days of treatment at home. He denies alcohol or illicit drugs. Hemodynamically stable, blood pressure on the low normal side systolic around 100 110. He is currently on normal saline 75 mL/h going to give him another blood loss of 500 mL of normal saline. Aspirin was placed on hold as well as Motrin and steroids and is currently on IV Protonix once daily. Hemoglobin is 11.5, WBC is 11.2. Potassium 5.4 and creatinine within the reference range. INR, BMP and liver enzymes were unremarkable Patient states that recently he had colonoscopy with Dr. Mckay which was un remarkable as per patient Objective - Vital Signs Vital signs: Vital Signs Temp 97.8 F 06/02/23 08:21 Pulse 70 06/02/23 08:21 Resp 16 06/02/23 08:21 BP 98/57 06/02/23 08:21 Pulse Ox 99 06/02/23 08:21 FiO2 Intake & Output 06/01/23 06/02/23 06/02/23 18:59 06:59 18:59 Intake Total 790 120 560 Balance 790 120 560 Intake: IV 10 Invasive Line 1 10 Oral 480 120 240 Blood Product 310 0 310 Rc As-1 Unit 310 [id number] Rc As-1 Unit 0 310 [id number] Other: Voiding Method Toilet Toilet Toilet # Voids 2 1 # Bowel Movements 0 0 - Exam GENERAL: The patient is alert and oriented x3, not in any acute distress. Well developed, well nourished. HEENT: Pupils are round and equally reacting to light. EOMI. No scleral icterus. No conjunctival pallor. Normocephalic, atraumatic. No pharyngeal erythema. No thyromegaly. CARDIOVASCULAR: S1 and S2 present. No murmurs, rubs, or gallops. PULMONARY: Chest is clear to auscultation, no wheezing , no crackles. ABDOMEN: Soft, nontender, nondistended, normoactive bowel sounds. No palpable organomegaly. MUSCULOSKELETAL: No joint swelling or deformity. EXTREMITIES: No cyanosis, clubbing, or pedal edema. NEUROLOGICAL: Gross neurological examination did not reveal any focal deficits. SKIN: No rashes. no petechiae. - Labs CBC & Chem 7: 06/03/23 09:35 06/02/23 10:46 Labs: Abnormal Lab Results - Last 24 Hours (Table) 05/31/23 06/01/23 06/01/23 Range/Units 11:22 15:57 23:09 RBC 2.29 L 2.24 L (4.30-5.90) m/uL Hgb 7.2 L 6.9 L* (13.0-17.5) gm/dL Hct 20.6 L 19.9 L* (39.0-53.0) % Crossmatch See Detail Assessment and Plan Assessment: Acute GI bleed, tenderness blood per rectum Acute blood loss anemia Hypertension Plan: Continue with IV fluid Hold aspirin and Motrin Continue with IV Protonix twice daily GI and surgery consult Start antibiotic Augmentin for a short oral course Monitor hemoglobin closely and transfuse for hemoglobin less than 7. Labs and medication were reviewed.. Continue same treatment. Continue with symptomatic treatment. Resume home medication. Monitor labs and vitals. DVT and GI prophylaxis. Further recommendations as per clinical course of the patient DVT prophylaxis: no Subcutaneous heparin GI Prophylaxis: Ppi
--- NOTE | 2023-06-03 18:30 | P.PN ---
Subjective Progress Note Date: 06/03/23 73 years old male with past medical history of hypertension. He follow-up with sales and marketing professional Dr. Juarez for his high blood pressure he was placed on aspirin 81 mg daily. His PCP is Dr. Hurtado. Patient presents because of episodes of blood in his stool that fills about one cup that happened yesterday afternoon and this morning. Patient denies abdominal pain or vomiting or bleeding from anywhere else. He states that he has chronic diarrhea for months once a day. He denies urinary symptoms. No chest pain. No headache dizziness weakness or numbness. Patient currently not a smoker but he has history of COPD. 3 days ago he went to his clinic offices and he was treated with prednisone, antibiotic and he took Motrin for generalized body ache. He is feeling better, breathing and coughing are improving. He states he still left 2 days of treatment at home. He denies alcohol or illicit drugs. Hemodynamically stable, blood pressure on the low normal side systolic around 100 110. He is currently on normal saline 75 mL/h going to give him another blood loss of 500 mL of normal saline. Aspirin was placed on hold as well as Motrin and steroids and is currently on IV Protonix once daily. Hemoglobin is 11.5, WBC is 11.2. Potassium 5.4 and creatinine within the reference range. INR, BMP and liver enzymes were unremarkable Patient states that recently he had colonoscopy with Dr. Mckay which was un remarkable as per patient 06/03/2023 Patient is seen and evaluated sitting up in bed; does report 2 bloody bowel movements yesterday Patient is status post EGD with findings of actively bleeding small duodenal ulcer along the duodenal sweep with a visible vessel status post injection of epinephrine followed by Endo Clip placement with good hemostasis. Small hiatal hernia. Patient was started on Protonix twice daily with a CBC ordered to every 12 hours. -- Hemoglobin dropped down to 6.9 post colonoscopy and patient received 1 more unit of packed RBCs; hemoglobin is up to 8.5 this morning -- Patient remains on Protonix 40 mg IV twice daily; continue to monitor H&H Possible discharge in next 24 hours if hemoglobin remains stable Objective - Vital Signs Vital signs: Vital Signs Temp 97.9 F 06/03/23 09:06 Pulse 84 06/03/23 09:06 Resp 16 06/03/23 09:06 BP 91/54 06/03/23 09:06 Pulse Ox 97 02/03/24 09:06 FiO2 Intake & Output 06/02/23 06/03/23 06/03/23 18:59 06:59 18:59 Intake Total 1652 20 125 Balance 1652 20 125 Intake: IV 20 20 Invasive Line 1 20 20 Oral 1322 125 Blood Product 310 Rc As-1 Unit 310 [id number] Other: Voiding Method Toilet Toilet Toilet # Voids 1 # Bowel Movements 1 1 - Exam GENERAL: The patient is alert and oriented x3, not in any acute distress. Well developed, well nourished. HEENT: Pupils are round and equally reacting to light. EOMI. No scleral icterus. No conjunctival pallor. Normocephalic, atraumatic. No pharyngeal erythema. No thyromegaly. CARDIOVASCULAR: S1 and S2 present. No murmurs, rubs, or gallops. PULMONARY: Chest is clear to auscultation, no wheezing , no crackles. ABDOMEN: Soft, nontender, nondistended, normoactive bowel sounds. No palpable organomegaly. MUSCULOSKELETAL: No joint swelling or deformity. EXTREMITIES: No cyanosis, clubbing, or pedal edema. NEUROLOGICAL: Gross neurological examination did not reveal any focal deficits. SKIN: No rashes. no petechiae. - Labs CBC & Chem 7: 06/03/23 09:35 06/02/23 10:46 Labs: Abnormal Lab Results - Last 24 Hours (Table) 06/02/23 06/02/23 06/03/23 Range/Units 10:46 10:46 09:35 RBC 2.64 L 2.79 L (4.30-5.90) m/uL Hgb 8.0 L 8.5 L (13.0-17.5) gm/dL Hct 23.0 L 25.1 L (39.0-53.0) % Sodium 134 L (137-145) mmol/L Calcium 7.8 L (8.4-10.2) mg/dL Assessment and Plan Assessment: Acute GI bleed, tenderness blood per rectum Acute blood loss anemia Hypertension Plan: Continue with IV fluid Hold aspirin and Motrin Continue with IV Protonix twice daily GI and surgery consult Start antibiotic Augmentin for a short oral course Monitor hemoglobin closely and transfuse for hemoglobin less than 7. Labs and medication were reviewed.. Continue same treatment. Continue with s ymptomatic treatment. Resume home medication. Monitor labs and vitals. DVT and GI prophylaxis. Further recommendations as per clinical course of the patient DVT prophylaxis: no Subcutaneous heparin GI Prophylaxis: Ppi
[2023-06-04 08:49] VITALS: RESP 16; TEMP 97.9
[2023-06-04 10:56] LABS: Anisocytosis Slight; Basophils # (A) 0.1 k/uL (0-0.2); Basophils % (A) 1 %; Eosinophils # (A) 0.2 k/uL (0-0.7); Eosinophils % (A) 1 %; HCT 27.6 % (39.0-53.0); HGB 9.1 gm/dL (13.0-17.5); Lymphocytes # (A) 1.6 k/uL (1.0-4.8); Lymphocytes % (A) 15 %; MCH 30.4 pg (25.0-35.0); MCV 92.1 fL (80.0-100.0); Mean Platelet Volume 7.8; Monocytes # (A) 0.4 k/uL (0-1.0); Monocytes % (A) 4 %; Neutrophils # (A) 8.5 k/uL (1.3-7.7); Neutrophils % (A) 78 %; Platelet Count 261 k/uL (150-450); RBC 2.99 m/uL (4.30-5.90); RDW 16.6 % (11.5-15.5); WBC 10.8 k/uL (3.8-10.6)
[2023-06-04 11:17] LABS: African American GFR (CKD) >90 (>60 ml/min/1.73 sqM); Anion Gap 1 mmol/L; Blood Urea Nitrogen 18 mg/dL (9-20); Calcium 8.5 mg/dL (8.4-10.2); Carbon Dioxide 28 mmol/L (22-30); Chloride 107 mmol/L (98-107); Glucose 97 mg/dL (74-99); Non-African American GFR(CKD) >90 (>60 ml/min/1.73 sqM); Potassium 4.3 mmol/L (3.5-5.1); Sodium 136 mmol/L (137-145)
--- NOTE | 2023-06-04 12:12 | P.PN ---
Subjective Progress Note Date: 06/04/23 Principal diagnosis: GI bleed Patient doing well today. Still having some black-colored stools that are semiformed. Hemoglobin 9.1 from 8.5. No pain. Objective - Vital Signs Vital signs: Vital Signs Temp 97.9 F 06/04/23 08:30 Pulse 69 06/04/23 11:41 Resp 16 06/04/23 11:41 BP 118/58 06/04/23 11:41 Pulse Ox 97 06/04/23 11:41 FiO2 Intake & Output 06/03/23 06/04/23 06/04/23 18:59 06:59 18:59 Intake Total 243 300 240 Balance 243 300 240 Intake: Oral 243 300 240 Other: Voiding Method Toilet Toilet Toilet # Voids 2 1 # Bowel Movements 1 1 - Exam Abdomen: Soft, nontender, nondistended - Labs CBC & Chem 7: 06/04/23 10:13 06/04/23 10:13 Labs: Abnormal Lab Results - Last 24 Hours (Table) 06/04/23 06/04/23 Range/Units 10:13 10:13 WBC 10.8 H (3.8-10.6) k/uL RBC 2.99 L (4.30-5.90) m/uL Hgb 9.1 L (13.0-17.5) gm/dL Hct 27.6 L (39.0-53.0) % RDW 16.6 H (11.5-15.5) % Neutrophils # 8.5 H (1.3-7.7) k/uL Sodium 136 L (137-145) mmol/L Assessment and Plan (1) GI bleed Narrative/Plan: 73-year-old male with bleeding duodenal ulcer. Still having some melanotic stools which we would expect given the amount of bleeding he dealt with in itially. Continue antiacids. Continue diet. Stable for discharge. Follow-up with GI as outpatient. Current Visit: Yes Status: Acute Code(s): K92.2 - GASTROINTESTINAL HEMORRHAGE, UNSPECIFIED SNOMED Code(s): 16979845
[2023-06-04 12:27] VITALS: BP 118/58; PULSE 69
== END 2023-06-04 14:29 | disposition home or self-care (01) | DRG 378 ==
LOC: EC 18:30 → 3SCARD 22:23 → OBSVTOIN 06-01 11:10
PROVIDERS: ADMIT Hospitalist; ATTEND Hospitalist
PROC: 0DB98ZX Excision of Duodenum, Via Natural or Artificial Opening Endoscopic, Diagnostic (ICD-10-PCS; 2023-05-31)
PROC: 3E0G8GC Introduction of Other Therapeutic Substance into Upper GI, Via Natural or Artificial Opening Endoscopic (ICD-10-PCS; principal; 2023-05-31 07:45)
PROC: 0W3P8ZZ Control Bleeding in Gastrointestinal Tract, Via Natural or Artificial Opening Endoscopic (ICD-10-PCS; 2023-05-31 07:45)
PROC: 30233N1 Transfusion of Nonautologous Red Blood Cells into Peripheral Vein, Percutaneous Approach (ICD-10-PCS; 2023-06-01)
DX: K26.4 Chronic or unspecified duodenal ulcer with hemorrhage (principal); D62 Acute posthemorrhagic anemia; I10 Essential (primary) hypertension; J44.9 Chronic obstructive pulmonary disease, unspecified; E83.42 Hypomagnesemia; K44.9 Diaphragmatic hernia without obstruction or gangrene; K52.9 Noninfective gastroenteritis and colitis, unspecified; J40 Bronchitis, not specified as acute or chronic; K63.5 Polyp of colon; R03.1 Nonspecific low blood-pressure reading; Z96.651 Presence of right artificial knee joint; Z87.891 Personal history of nicotine dependence; Z87.19 Personal history of other diseases of the digestive system; Z79.82 Long term (current) use of aspirin; Z79.899 Other long term (current) drug therapy
CPT/HCPCS: 36415; 45380; 45382; 71275; 74174; 80048; 80053; 83605; 83690; 83735; 84100; 84145; 85025; 85027; 85610; 85730; 86850; 86900; 86901; 86920; 88305; 88342; 96360; 96361; 96374; 99285

== ENCOUNTER → 2023-09-05 | Outpatient (CLI) | payer MEDICARE ==
[2023-09-05 15:18] LABS: % Iron Saturation 39.46 (15.00-50.00); Ferritin 59.2 ng/mL (22.0-322.0)
[2023-09-05 15:55] LABS: Basophils # (A) 0.08 X 10*3/uL (0.00-0.10); Basophils % (A) 1.1 %; Eosinophils # (A) 0.06 X 10*3/uL (0.04-0.35); Eosinophils % (A) 0.9 %; HCT 44.9 % (39.6-50.0); HGB 14.3 g/dL (13.0-17.0); Lymphocytes # (A) 1.67 X 10*3/uL (0.90-5.00); Lymphocytes % (A) 23.8 %; MCHC 31.8 g/dL (32.0-37.0); MCV 91.1 FL (80.0-97.0); Mean Platelet Volume 10.6 FL (9.5-12.2); Monocytes # (A) 0.42 X 10*3/uL (0.20-1.00); NRBC Per 100 WBC 0 X 10*3/uL (0.00-0.01); Neutrophils # (A) 4.78 X 10*3/uL (1.80-7.70); Neutrophils % (A) 68.1 %; Platelet Count 207 X 10*3/uL (140-440); RBC 4.93 X 10*6/uL (4.40-5.60); RDW 14.3 % (11.5-14.5); WBC 7.02 X 10*3/uL (4.50-10.00)
== END | disposition home or self-care (01) ==
LOC: LABWHC1 11:11
PROVIDERS: ATTEND Internal Medicine Gastroenterology
DX: D50.9 Iron deficiency anemia, unspecified (principal); B96.81 Helicobacter pylori [H. pylori] as the cause of diseases classified elsewhere
CPT/HCPCS: 36415; 82728; 83540; 83550; 85025; 87338

== ENCOUNTER → 2024-05-06 | Outpatient (CLI) | payer MEDICARE ==
--- NOTE | 2024-05-06 10:34 | US ---
EXAMINATION TYPE: US duplex aorta DATE OF EXAM: 05/06/2024 COMPARISON: CTA 05/31/23 CLINICAL INDICATION: Male, 73 years old with history of [id number] THORACIC AORTIC ANEURYSM; thoracic and infrarenal aneurysm. TECHNIQUE: Multiple sonographic images of the abdominal aorta are obtained with grayscale and color D oppler imaging. FINDINGS: EXAM MEASUREMENTS: Abdominal Aorta: Proximal: 3.3 x 3.1cm Mid: 3.1 x 3.1cm Distal: 3.8 x 2.8cm Bifurcation: Right Iliac: 1.4 x 1.5 Left Iliac: 2.1 x 1.6 DISTRIBUTION ENGINEER NOTES: Aorta appears ectatic throughout. Plaque seen throughout. Distal ao and iliacs are limited due to bowel gas. Dilatation seen in distal aorta measuring up to 3.8cm IMPRESSION: Suboptimal study with AAA measuring up to 3.8 cm redemonstrated . [facility], , 05/06/2024 10:32 AM
== END | disposition home or self-care (01) ==
LOC: RADUSWWP 09:58
PROVIDERS: ATTEND Family Medicine
DX: I71.20 Thoracic aortic aneurysm, without rupture, unspecified (principal); I71.40 Abdominal aortic aneurysm, without rupture, unspecified
CPT/HCPCS: 93979

== ENCOUNTER → 2024-05-24 | Outpatient (CLI) | payer MEDICARE ==
[2024-05-24 11:45] LABS: African American GFR (CKD) >90 (>60 ml/min/1.73 sqM); Blood Urea Nitrogen 24 mg/dL (9-20); Non-African American GFR(CKD) 84 (>60 ml/min/1.73 sqM)
--- NOTE | 2024-05-24 12:36 | CT ---
EXAMINATION TYPE: CT angio chest DATE OF EXAM: 05/24/2024 COMPARISON: Prior CTA May 31, 2023 HISTORY: Thoracic aortic aneurysm w/o rupture. CT DLP: 452.8 mGycm. Automated Exposure Control for Dose Reduction was Utilized. CONTRAST: CTA scan of the thorax is performed without and with IV Contrast, patient injected with 100 ml mL of Isovue 370, aneurysm protocol. 3D reconstructed images are created on an independent workstation and reviewed. FINDINGS: LUNGS: Moderate underlying emphysematous change remains present. No focal consolidation. No pleural e ffusion or pneumothorax seen. MEDIASTINUM: Noncontrast images show no suspicious hyperdense material to suggest intramural hematoma . Satisfactory enhancement of the pulmonary arteries is seen. Ascending aorta measures up to 4.2 cm a level of the main pulmonary artery axial image 82. Aorta measures 3.7 cm at the root coronal image 4 5. Normal three-vessel origin is seen. There is moderate peripheral plaque in the arch extending into the ascending aorta. Slightly ectatic course is seen. No aneurysm at this level is evident. No car diomegaly or pericardial effusion is seen. Coronary artery calcification is redemonstrated. OTHER: Known AAA is partially imaged. Scoliosis with multilevel spurring of thoracic spine is redemon strated. IMPRESSION: Stable ascending aortic aneurysm which I measure up to 4.2 cm on today's study. [facility], , 05/24/2024 12:34 PM
== END | disposition home or self-care (01) ==
LOC: RADCTMAIN 11:09
PROVIDERS: ATTEND Family Medicine
DX: I71.21 Aneurysm of the ascending aorta, without rupture (principal)
CPT/HCPCS: 82565; 84520; 71275; 36415; Q9967